=== PATIENT | female | born 1975 | race Caucasian/White ===

== ENCOUNTER 2016-07-17 15:15 | Emergency (ER) | payer BC, MEDICAID ==
--- NOTE | 2016-07-17 15:43 | Emergency Department Record ---
History of Present Illness - General Chief Complaint: Hypertension Stated Complaint: ELEVATED BP/FACIAL NUMBNESS Time Seen by Provider: 07/17/16 15:43 Source: Patient Mode of Arrival: Ambulatory Limitations: No limitations - History of Present Illness Initial Comments: pt came in c/o of stuttering numbness of l face, arm and leg through the night. right now she states the symptoms have faded in her arm and leg but are still present in her face. she was just discharged from [facility] for an acute stroke in the r mca /posterior limb of ic seen only on mri. Complaint: Other Onset/Timin -: Days(s) Timing: Now resolved Description: Lightheadedness, Near-syncope, Off-balance History of Same: Yes History of Trauma: No Severity: Mild Improves With: Nothing Worsens With: Nothing - [place] Coma Scale Eye Response: (4) Open spontaneously Motor Response: (6) Obeys commands Verbal Response: (5) Oriented Adri Total: 15 - Symptoms of Stroke Symptoms of stroke: Numbness, Weakness of Face Muscles - Related Data Home Medications Medication Instructions Recorded Confirmed Last Taken Aspirin [Ecotrin] 325 mg PO DAILY 07/17/16 07/17/16 1 Day Ago Venlafaxine HCl [Effexor Xr] 37.5 mg PO DAILY 07/17/16 07/17/16 1 Day Ago Allergies Allergy/AdvReac Type Severity Reaction Status Date / Time No Known Drug Allergies Allergy Verified 07/17/16 15:28 Travel Screening - Travel/Exposure Within Last 30 Days Have you traveled within the last 30 days?: No - Travel/Exposure Within Last Year Have you traveled outside the [place] in the last year?: No - Additonal Travel Details Have you been exposed to anyone with a communicable illness?: No - Travel Symptoms Symptom Screening: None Review of Systems Reviewed: No additional complaints except as noted below Constitutional: Reports: As per HPI. Denies: Chills, Fever, Malaise, Night sweats, Weakness, Weight change Eyes: Reports: As per HPI. Denies: Eye discharge, Eye pain, Photophobia, Vision change ENT: Reports: As per HPI. Denies: Congestion, Dental pain, Ear pain, Epistaxis , Hearing loss, Throat pain Respiratory: Reports: As per HPI. Denies: Cough, Dyspnea, Hemoptysis, Stridor, Wheezes Cardiovascular: Reports: As per HPI. Denies: Arrhythmia, Chest pain, Dyspnea on exertion, Edema, Murmurs, Orthopnea, Palpitations, Paroxysmal nocturnal dyspnea, Rheumatic Fever, Syncope Endocrine: Reports: As per HPI. Denies: Fatigue, Heat or cold intolerance, Polydipsia, Polyuria Gastrointestinal: Reports: As per HPI. Denies: Abdominal pain, Constipation, Diarrhea, Hematemesis, Hematochezia, Melena, Nausea, Vomiting Genitourinary: Reports: As per HPI. Denies: Abnormal menses, Discharge, Dyspareunia, Dysuria, Frequency, Hematuria, Incontinence, Retention, Urgency Musculoskeletal: Reports: As per HPI. Denies: Arthralgia, Back pain, Gout, Joint swelling, Myalgia, Neck pain Skin: Reports: As per HPI. Denies: Bruising, Change in color, Change in hair/ nails, Lesions, Pruritus, Rash Neurological: Reports: As per HPI. Denies: Abnormal gait, Confusion, Headache, Numbness, Paresthesias, Seizure, Tingling, Tremors, Vertigo, Weakness Psychiatric: Reports: As per HPI. Denies: Anxiety, Auditory hallucinations, Depression, Homicidal thoughts, Suicidal thoughts, Visual hallucinations Hematological/Lymphatic: Reports: As per HPI. Denies: Anemia, Blood Clots, Easy bleeding, Easy bruising, Swollen glands Past Medical History - SOCIAL HISTORY Smoking Status: Light tobacco smoker (<10/day) Alcohol Use: Occassional Drug Use: None - RESPIRATORY Hx Respiratory Disorders: No - CARDIOVASCULAR Hx Cardio Disorders: Yes Hx Hypertension: Yes - NEURO Hx CVA: Yes (07/12/2016) - GI Hx GI Disorders: No - Hx Genitourinary Disorders: Yes Hx Kidney Stones: Yes - ENDOCRINE Hx Thyroid Disease: Yes (new mass) - MUSCULOSKELETAL Hx Musculoskeletal Disorders: Yes - PSYCH Hx Psych Problems: Yes Hx Anxiety: Yes Hx Depression: Yes - HEMATOLOGY/ONCOLOGY Hx Hematology/Oncology Disorders: No Family Medical History Any Significant Family History?: Yes Hx Cancer: Brother/Sister Hx Heart Disease: Mother Physical Exam - General General Appearance: Alert, Oriented x3, Cooperative, Mild distress - Head Head exam: Normal inspection - Eye Eye exam: Normal appearance, PERRL, EOMI Pupils: Normal accommodation - ENT ENT exam: Normal exam, Mucous membranes moist, Normal external ear exam, Normal orophraynx Ear exam: Normal external inspection. negative: External canal tenderness Nasal Exam: Normal inspection. negative: Discharge, Sinus tenderness Mouth exam: Normal external inspection, Tongue normal Teeth exam: Normal inspection. negative: Dental caries Throat exam: Normal inspection. negative: Tonsillar erythema, Tonsillar exudate - Neck Neck exam: Normal inspection, Full ROM. negative: Tenderness - Respiratory Respiratory exam: Normal lung sounds bilaterally. negative: Respiratory distress - Cardiovascular Cardiovascular Exam: Normal rhythm, Normal heart sounds, Tachycardia - GI/Abdominal GI/Abdominal exam: Soft, Normal bowel sounds. negative: Tenderness - Rectal Rectal exam: Deferred - exam: Deferred - Extremities Extremities exam: Normal inspection, Full ROM, Normal capillary refill. negative: Tenderness - Back Back exam: Reports: Normal inspection, Full ROM. Denies: Muscle spasm, Rash noted, Tenderness - Neurological Neurological exam: Alert, CN II-XII intact, Normal gait, Oriented X3, Other ( decreased sensation) - Psychiatric Psychiatric exam: Normal affect, Normal mood - Skin Skin exam: Dry, Intact, Normal color, Warm Stroke Assessment - NIH Stroke Scale 1a. Level of Consciousness: (0) Alert 1b. LOC Questions: (0) Answers Correctly 1c. LOC Commands: (0) Performs Tasks Correctly 2. Best Gaze: (0) Normal 3. Visual: (0) No Visual Loss 4. Facial Palsy: (1) Minor Paralysis 5a. Motor Arm Left: (0) No Drift 5b. Motor Arm Right: (0) No Drift 6a. Motor Leg Left: (0) No Drift 6b. Motor Leg Right: (0) No Drift 7. Limb Ataxia: (0) Absent 8. Sensory: (1) Mild/Moderate Sensory Loss 9. Best Language: (0) No Aphasia 10. Dysarthria: (0) Normal 11. Extinction/Inattention: (0) No Abnormality NIH Stoke Scale Total: 2 Course Vital Signs 07/17/16 15:18 Temperature 98.3 F Pulse Rate 108 H Respiratory 22 Rate Blood Pressure 147/119 Pulse Ox 96 - Reevaluation(s) Reevaluation #1: 07/17/16 18:41 initially pt had slight numbness in l side of face Reevaluation #2: 07/17/16 18:42 on recheck pt had numbness and slight drooping of l side of face just like she had with stroke. symptoms in extremities remained resolved. Medical Decision Making - Management Options MDM Management: Additional Work-up Planned (e.g. ADM/Transfer/OP Study) - Data Complexity MDM Data: Labs Ordered and/or Reviewed, X-Ray Ordered and/or Reviewed, EKG Ordered and/or Reviewed - Lab Data Result diagrams: 07/17/16 15:48 07/17/16 15:48 - EKG Data EKG: Abnormal EKG (deep inverted t waves that are deeper then previous ekg) Disposition Disposition: Transfer Clinical Impression: Elevated liver enzymes Stroke Qualifiers: CVA mechanism: unspecified Qualified Code(s): I63.9 - Cerebral infarction, unspecified Disposition: Acute Care Hospital Transfer Transfer To: [facility] Reason For Transfer: stroke Accepting Physician: dr [email or web address] Time Discussed w/Accepting Physician: 18:15 Forms: Patient Portal Access
[2016-07-17 15:56] LABS: HEMATOCRIT 42.8 % (35.0-47.0); HEMOGLOBIN 14.4 gm/dl (11.6-16.0); MEAN CELL VOLUME 93.4 fl (81-97); MEAN CORPUSCULAR HEMOGLOBIN 31.4 pg (27-33); MEAN CORPUSCULAR HGB CONC 33.6 g/dl (32-36); MEAN PLATELET VOLUME 11.1 fl (7.4-10.4); PLATELET COUNT 291 K/uL (130-400); RED BLOOD COUNT 4.58 M/uL (3.80-5.40); RED CELL DISTRIBUTION WIDTH 14.1 % (11.5-14.5); WHITE BLOOD COUNT W/O DIFF 12.5 K/uL (4.2-12.2)
[2016-07-17 16:07] LABS: PLATELET ESTIMATE NORMAL (NORMAL)
[2016-07-17 16:08] LABS: ANION GAP 16.6 (7-16); BLOOD UREA NITROGEN 9 mg/dL (7-17); CARBON DIOXIDE 21.4 mmol/L (22-30); CREATINE PHOSPHOKINASE 37 U/L (30-135); CREATININE 0.6 mg/dL (0.52-1.04); EST GLOMERULAR FILTRATION RATE > 60 ml/min; GLUCOSE,RANDOM 91 mg/dL (70-110)
[2016-07-17 16:10] LABS: INR 0.94; PARTIAL THROMBOPLASTIN TIME 25.4 SECONDS (24.5-39.1); PROTHROMBIN TIME (PATIENT) 10.6 SECONDS (9.5-12.1)
[2016-07-17 16:20] LABS: CKMB < 0.2 ug/L (0-6); TROPONIN I < 0.012 ng/mL (0.00-0.034)
[2016-07-17 17:23] LABS: ALBUMIN 4.7 gm/dL (3.5-5.0); BILIRUBIN,TOTAL 0.76 mg/dL (0.2-1.3); TOTAL PROTEIN 7.8 gm/dL (6.3-8.2)
[2016-07-17 17:29] LABS: URINE APPEARANCE CLEAR; URINE BILIRUBIN NEGATIVE (NEGATIVE); URINE BLOOD TRACE-I (NEGATIVE); URINE COLOR YELLOW; URINE GLUCOSE (UA) NEGATIVE (NEGATIVE); URINE KETONE NEGATIVE (NEGATIVE); URINE LEUKOCYTE ESTERASE NEGATIVE (NEGATIVE); URINE NITRITE NEGATIVE (NEGATIVE); URINE PROTEIN NEGATIVE (NEGATIVE)
[2016-07-17 17:37] LABS: URINE BACTERIA NONE SEEN; URINE EPITHELIAL CELLS 0 - 2 (FEW); URINE WBC NONE SEEN (0-2/hpf)
--- NOTE | 2016-07-21 13:12 | CT SCAN REPORT ---
EXAM: HEAD CT WITHOUT CONTRAST HISTORY: INTERMITTENT LEFT FACIAL NUMBNESS. HISTORY OF STROKE ON 07/12/16. TECHNIQUE: Contiguous axial images from the cerebral convexities to the foramen magnum were obtained without contrast. Comparison: None. Hand dominance: Unknown. FINDINGS: The brain volume is normal. No acute intracranial hemorrhage, mass effect, or midline shift. No CT evidence of acute infarct. The ventricles, basal cisterns, and sulci are within normal limits. The osseous structures, soft tissues and paranasal sinuses are unremarkable. IMPRESSION: NORMAL HEAD CT. JOB NUMBER: [id number] MTDD
== END 2016-07-17 20:09 | disposition short-term general hospital (02) ==
LOC: ER 15:15
DX: I63.9 Cerebral infarction, unspecified (principal); R29.810 Facial weakness; R29.702 NIHSS score 2; R55 Syncope and collapse; R74.8 Abnormal levels of other serum enzymes; I10 Essential (primary) hypertension; Z87.891 Personal history of nicotine dependence; Z86.73 Personal history of transient ischemic attack (TIA), and cerebral infarction without residual deficits
CPT/HCPCS: 70450; 80048; 80076; 81001; 82550; 82553; 84484; 85027; 85610; 85730; 93005; 93010; 99285

== ENCOUNTER 2016-07-26 15:30 | Emergency (ER) | payer BC, MEDICAID ==
--- NOTE | 2016-07-26 16:27 | Emergency Department Record ---
History of Present Illness - General Chief complaint: ENT Stated complaint: POST OP ISSUES Time Seen by Provider: 07/26/16 16:26 Source: Patient Mode of Arrival: Ambulatory Limitations: No limitations - History of Present Illness Initial comments: The patient is here due to throat pain at her biopsy site. The patient had a thyroid biopsy 2 weeks ago and has done well until she started to develop pain at the site a few days ago. She was unable to contact the ENT doctor so she decided to come to the ER. There has been no fever, chills, vomiting, voice changes or odynophagia. MD complaint: Sore throat Onset/Timin -: Days(s) Location: Throat Severity: Moderate Severity scale (1-10): 7 Quality: Other Consistency: Constant Improves with: None Worsens with: Movement, Position, Swallowing Context-Epistaxis: Recent surgery/procedure Associated Symptoms: Other - Related Data Home Medications Medication Instructions Recorded Confirmed Last Taken Aspirin [Ecotrin] 325 mg PO DAILY 07/17/16 07/26/16 1 Day Ago Venlafaxine HCl [Effexor Xr] 37.5 mg PO DAILY 07/17/16 07/26/16 1 Day Ago Hydrocodone/Acetaminophen 7.5 mg PO ASDIR 07/26/16 07/26/16 Unknown [Hydrocodone/Acetaminophen 7.5mg/325mg] Previous Rx's Medication Instructions Recorded Cephalexin [Keflex] 500 mg PO QID #28 cap 07/26/16 Allergies Allergy/AdvReac Type Severity Reaction Status Date / Time No Known Drug Allergies Allergy Unverified 07/24/16 15:52 Travel Screening - Travel/Exposure Within Last 30 Days Have you traveled within the last 30 days?: No Review of Systems Constitutional: Denies: Chills Eyes: Denies: Eye discharge ENT: Denies: Congestion Respiratory: Denies: Cough, Dyspnea Past Medical History - SOCIAL HISTORY Smoking Status: Former smoker Alcohol Use: None Drug Use: None - RESPIRATORY Hx Respiratory Disorders: No - CARDIOVASCULAR Hx Cardio Disorders: Yes Hx Hypertension: Yes - NEURO Hx Neuro Disorders: Yes Hx CVA: Yes (07/12/2016) - GI Hx GI Disorders: No - Hx Genitourinary Disorders: Yes Hx Kidney Stones: Yes - ENDOCRINE Hx Endocrine Disorders: Yes Hx Thyroid Disease: Yes (new mass) - MUSCULOSKELETAL Hx Musculoskeletal Disorders: Yes - PSYCH Hx Psych Problems: Yes Hx Anxiety: Yes Hx Depression: Yes - HEMATOLOGY/ONCOLOGY Hx Hematology/Oncology Disorders: No Family Medical History Any Significant Family History?: Yes Hx Cancer: Brother/Sister Hx Heart Disease: Mother Physical Exam - General General Appearance: Alert, Oriented x3, Cooperative, No acute distress - Head Head exam: Atraumatic, Normocephalic, Normal inspection - Eye Eye exam: Normal appearance, PERRL - ENT ENT exam: Normal exam, Mucous membranes moist, Normal external ear exam, Normal orophraynx, TM's normal bilaterally Throat exam: Normal inspection. negative: Tonsillar erythema, Tonsillar exudate - Neck Neck exam: Normal inspection (There are no signs of any infection or swelling.) , Full ROM, Tenderness (There is tenderness to the L side of the thyroid gland but no swelling, bruising, or erythema is noted.). negative: Lymphadenopathy, Meningismus Course Vital Signs 07/26/16 15:57 Temperature 98.7 F Pulse Rate 109 H Respiratory 20 Rate Blood Pressure 118/83 Pulse Ox 97 - Reevaluation(s) Reevaluation #1: The patient is doing very well. I did discuss the CT results which do demonstrate a 2.4x1.9 cm cystic lesion in the L side of the thyroid. There is slight rightward tracheal deviation but no other issues. There does not appear to be any hemorrhage or stranding. The lesion is smaller than prior to the biopsy since it measured 3 cm prior to the aspiration. The patient is to F/U with her PCP early next week for recheck. 07/26/16 18:30 Medical Decision Making - Data Complexity MDM Data: Labs Ordered and/or Reviewed, X-Ray Ordered and/or Reviewed - Lab Data Result diagrams: 07/26/16 17:26 07/26/16 17:26 - Radiology Data Radiology results: Report reviewed (ST neck: Slight tracheal deviation to R. CT: 2.4x1.9 cm cystic lesion L side of the thyroid.) Disposition Disposition: Discharge Clinical Impression: Post-op pain Disposition: Home, Self-Care Condition: (1) Good Instructions: Thyroid Nodules (ED) Additional Instructions: Please continue your regular pain medicines. Please continue the Keflex as directed. Please see your PCP early this next week for recheck. Proceed to the ER for any increased pain, swelling, or fever. Prescriptions: Cephalexin [Keflex] 500 mg PO QID #28 cap Forms: Patient Portal Access Time of Disposition: 18:37
[2016-07-26 17:46] LABS: BASO % 0.4 % (0-6); EOS % 1.1 % (0-6); GRAN % 79.7 % (47-80); HEMATOCRIT 41.2 % (35.0-47.0); HEMOGLOBIN 13.8 gm/dl (11.6-16.0); LYMPH % 12.4 % (16-45); MEAN CELL VOLUME 93.8 fl (81-97); MEAN CORPUSCULAR HEMOGLOBIN 31.4 pg (27-33); MEAN CORPUSCULAR HGB CONC 33.5 g/dl (32-36); MEAN PLATELET VOLUME 11.8 fl (7.4-10.4); MONO % 6.4 % (0-9); PLATELET COUNT 301 K/uL (130-400); RED BLOOD COUNT 4.39 M/uL (3.80-5.40); RED CELL DISTRIBUTION WIDTH 13.3 % (11.5-14.5); WHITE BLOOD COUNT W/O DIFF 12.3 K/uL (4.2-12.2)
[2016-07-26 17:57] LABS: ANION GAP 13.6 (7-16); BLOOD UREA NITROGEN 7 mg/dL (7-17); C-REACTIVE PROTEIN 1.8 mg/dL (0.0-0.9); CARBON DIOXIDE 23.4 mmol/L (22-30); CREATININE 0.6 mg/dL (0.52-1.04); EST GLOMERULAR FILTRATION RATE > 60 ml/min; GLUCOSE,RANDOM 110 mg/dL (70-110)
[2016-07-26] MEDS: CEPHALEXIN 500 MG CAPSULE PO STA ×2 (18:46)
--- NOTE | 2016-07-31 12:59 | RADIOLOGY REPORT ---
EXAM: SOFT TISSUE NECK HISTORY: NECK PAIN. TECHNIQUE: AP and lateral views of the soft tissue neck were performed. FINDINGS: There is mild deviation of the trachea rightward. The prevertebral soft tissues are normal. The airway is patent. IMPRESSION: MILD DEVIATION OF THE TRACHEA RIGHTWARD. THE REMAINDER OF THE SOFT TISSUES ARE UNREMARKABLE. JOB NUMBER: [id number] [facility]
--- NOTE | 2016-07-31 13:06 | CT SCAN REPORT ---
EXAM: CT OF THE SOFT TISSUES OF THE NECK HISTORY: LEFT SIDED NECK PAIN. TECHNIQUE: Sequential axial images were obtained through the soft tissues of the neck after intravenous administration of 100 ml of Omnipaque 300 contrast material. Sagittal and coronal reformatted images were performed. FINDINGS: There is a 2.4 cm x 1.9 cm cystic lesion in the left lobe of the thyroid gland. This produces deviation of the trachea leftward. The remainder of the thyroid gland appears normal. The submandibular and parotid glands appear normal. The nasopharynx and oropharynx appears normal. The trachea appears normal. The visualized superior mediastinum appears normal. There is no lymphadenopathy in the soft tissues of the neck. IMPRESSION: 2.4 X 1.9 CM CYSTIC LESION IN THE LEFT LOBE OF THE THYROID GLAND. THIS PRODUCES DEVIATION OF THE TRACHEA LEFTWARD. THE REMAINDER OF THE EXAMINATION IS UNREMARKABLE. JOB NUMBER: [id number] [facility]TDD
== END 2016-07-26 18:50 | disposition home or self-care (01) ==
LOC: ER 15:30
DX: G89.18 Other acute postprocedural pain (principal); R07.0 Pain in throat; E07.9 Disorder of thyroid, unspecified
CPT/HCPCS: 99283 ×2; 85025; 86140; 80048; 70360; 70491; Q9967

== ENCOUNTER 2017-10-17 10:04 | Emergency (ER) | payer MEDICAID ==
--- NOTE | 2017-10-17 10:58 | Emergency Department Record ---
History of Present Illness - General Chief complaint: Vomiting Stated complaint: VOMITING/DIARRHEA Time Seen by Provider: 10/17/17 10:51 Source: Patient, RN notes reviewed Mode of Arrival: Ambulatory - History of Present Illness Initial comments: 2 weeks of cough and congestion and diarrhea vomiting and she feels body aches. her two boys are sick with this but they got over it in 3 days. she has body aches. Patient's primary Zeynep Haley and her daughter is also sick with vomiting and diarrhea. MD complaint: Diarrhea, Vomiting Onset/Timin -: Week(s) - Related Data Previous Rx's Medication Instructions Recorded Potassium Chloride 20 meq PO TID #60 [email or web address] 10/17/17 Allergies Allergy/AdvReac Type Severity Reaction Status Date / Time No Known Drug Allergies Allergy Verified 10/17/17 10:27 Travel Screening - Travel/Exposure Within Last 30 Days Have you traveled within the last 30 days?: No - Travel/Exposure Within Last Year Have you traveled outside the [place] in the last year?: No - Additonal Travel Details Have you been exposed to anyone with a communicable illness?: No - Travel Symptoms Symptom Screening: None Past Medical History - SOCIAL HISTORY Smoking Status: Former smoker Alcohol Use: Occasional Drug Use: None - RESPIRATORY Hx Respiratory Disorders: No - CARDIOVASCULAR Hx Cardio Disorders: Yes Hx Hypertension: Yes - NEURO Hx Neuro Disorders: Yes Hx CVA: Yes (07/12/2016) - GI Hx GI Disorders: No - Hx Genitourinary Disorders: Yes Hx Kidney Stones: Yes - ENDOCRINE Hx Endocrine Disorders: Yes Hx Thyroid Disease: Yes (new mass) - MUSCULOSKELETAL Hx Musculoskeletal Disorders: Yes - PSYCH Hx Psych Problems: Yes Hx Anxiety: Yes Hx Depression: Yes - HEMATOLOGY/ONCOLOGY Hx Hematology/Oncology Disorders: No Family Medical History Any Significant Family History?: Yes Hx Cancer: Brother/Sister Hx Heart Disease: Mother Course Vital Signs 10/17/17 10:29 Temperature 98.8 F Pulse Rate 112 H Respiratory 18 Rate Blood Pressure 104/80 Pulse Ox 97 Medical Decision Making - Lab Data Result diagrams: 10/17/17 11:26 10/17/17 11:26 Disposition Clinical Impression: Viral syndrome, Hypokalemia Vomiting Qualifiers: Vomiting type: unspecified Vomiting Intractability: non-intractable Nausea presence: with nausea Qualified Code(s): R11.2 - Nausea with vomiting, unspecified Diarrhea Qualifiers: Diarrhea type: unspecified type Qualified Code(s): R19.7 - Diarrhea, unspecified Disposition: Home, Self-Care Condition: (1) Good Instructions: Acute Nausea and Vomiting (ED) Additional Instructions: follow up with family in 4 days to recheck potassium Prescriptions: Potassium Chloride 20 meq PO TID #60 [email or web address] Forms: Patient Portal Access Time of Disposition: 13:20 Quality - Quality Measures Quality Measures: N/A - Blood Pressure Screening Does Patient Have Any of the Following: No Blood Pressure Classification: Pre-Hypertensive BP Reading Systolic Measurement: 104 Diastolic Measurement: 80 Screening for High Blood Pressure: < Pre-Hypertensive BP, F/U Documented > [ [id number]] Pre-Hypertensive Follow-up Interventions: Referral to alternative/primary care provider.
[2017-10-17] MEDS ORDERED: ONDANSETRON HCL IV 4 MG/2 ML VIAL IV ONE (11:05)
[2017-10-17] MEDS ORDERED: 0.9 % SODIUM CHLORIDE 1,000 ML BAG IV ONE (11:05)
[2017-10-17 11:34] LABS: HEMATOCRIT 39.5 % (35.0-47.0); HEMOGLOBIN 13.8 gm/dl (11.6-16.0); MEAN CELL VOLUME 96.8 fl (81-97); MEAN CORPUSCULAR HEMOGLOBIN 33.8 pg (27-33); MEAN CORPUSCULAR HGB CONC 34.9 g/dl (32-36); MEAN PLATELET VOLUME 11.4 fl (7.4-10.4); PLATELET COUNT 280 K/uL (130-400); RED BLOOD COUNT 4.08 M/uL (3.80-5.40); RED CELL DISTRIBUTION WIDTH 15.2 % (11.5-14.5); WHITE BLOOD COUNT W/O DIFF 15.7 K/uL (4.2-12.2)
[2017-10-17 11:46] LABS: CREATININE 0.6 mg/dL (0.5-0.9); EST GLOMERULAR FILTRATION RATE > 60 mL/min
[2017-10-17 11:48] LABS: INFLUENZA A NEGATIVE (NEGATIVE); INFLUENZA B NEGATIVE (NEGATIVE)
[2017-10-17 11:49] LABS: GLUCOSE,RANDOM 174 mg/dL (74-109)
[2017-10-17 12:17] LABS: BLOOD UREA NITROGEN 1 mg/dL (6-20)
[2017-10-17] MEDS ORDERED: SOD CHLOR 0.9% WITH KCL 40MEQ 40 MEQ/1,000 ML IV.SOLN IV ONE (12:17)
[2017-10-17] MEDS ORDERED: POTASSIUM CHLORIDE 20 MEQ TABLET PO ONE ×2 (12:18→13:14)
== END 2017-10-17 14:01 | disposition home or self-care (01) ==
LOC: ER 10:04
DX: R11.2 Nausea with vomiting, unspecified (principal); R19.7 Diarrhea, unspecified; E87.6 Hypokalemia; I10 Essential (primary) hypertension; F17.210 Nicotine dependence, cigarettes, uncomplicated
CPT/HCPCS: 99284 ×2; 96374; 96375; 80048; 87400; 85027; J2405; 99282; J7030

== ENCOUNTER 2018-04-27 17:16 | Emergency (ER) | payer MEDICAID ==
[2018-04-27 17:59] LABS: BASO % 0.6 % (0-6); EOS % 1.1 % (0-6); GRAN % 76.8 % (47-80); HEMATOCRIT 21.6 % (35.0-47.0); MEAN CORPUSCULAR HEMOGLOBIN 37.6 pg (27-33); MEAN CORPUSCULAR HGB CONC 32.4 g/dl (32-36); MEAN PLATELET VOLUME 9.6 fl (7.4-10.4); MONO % 8.5 % (0-9); PLATELET COUNT 203 K/uL (130-400); RED BLOOD COUNT 1.86 M/uL (3.80-5.40); RED CELL DISTRIBUTION WIDTH 14.2 % (11.5-14.5); WHITE BLOOD COUNT W/O DIFF 12.6 K/uL (4.2-12.2)
[2018-04-27 18:09] LABS: MEAN CELL VOLUME 116.1 fl (81-97)
[2018-04-27 18:12] LABS: BLOOD UREA NITROGEN 3 mg/dL (6-20); CREATININE 0.5 mg/dL (0.5-0.9); EST GLOMERULAR FILTRATION RATE > 60 mL/min; INR 1.5; PARTIAL THROMBOPLASTIN TIME 33.3 SECONDS (24.5-39.1); PROTHROMBIN TIME (PATIENT) 14.5 SECONDS (9.5-12.1)
[2018-04-27 18:13] LABS: TOTAL PROTEIN 6.6 g/dL (6.6-8.7)
[2018-04-27 18:15] LABS: GLUCOSE,RANDOM 104 mg/dL (74-109)
[2018-04-27 18:17] LABS: ALT/SGPT 14 U/L (<33); AST/SGOT 52 U/L (10.0-35.0)
[2018-04-27 18:18] LABS: ALB/GLOB RATIO 0.8 (1.1-1.8); ALBUMIN 2.9 g/dL (4.0-5.0); ALKALINE PHOSPHATASE 154 U/L (35-104)
[2018-04-27 18:29] LABS: T3 UPTAKE 36 % (25-35); THYROXINE (T4) 9.28 ug/dL (4.5-11.7)
[2018-04-27 19:13] LABS: URINE APPEARANCE SL CLOUDY; URINE BILIRUBIN MODERATE (NEGATIVE); URINE BLOOD MODERATE (NEGATIVE); URINE COLOR ORANGE; URINE GLUCOSE (UA) NEGATIVE (NEGATIVE); URINE KETONE NEGATIVE (NEGATIVE); URINE LEUKOCYTE ESTERASE TRACE (NEGATIVE); URINE PROTEIN TRACE (NEGATIVE)
[2018-04-27 19:23] LABS: URINE NITRITE POSITIVE (NEGATIVE)
[2018-04-27 19:24] LABS: URINE BACTERIA 2+
--- NOTE | 2018-04-27 19:28 | Emergency Department Record ---
History of Present Illness - General Chief Complaint: Palpitations Stated Complaint: HEART RACING,DIZZINESS Time Seen by Provider: 04/27/18 17:26 Source: Patient Mode of Arrival: Wheelchair Limitations: No limitations - History of Present Illness Initial Comments: pt came in because she is swelling, having difficulty walking, feeling weak. she was admitted to [facility] in november for a month and had an extensive workup including a liver biopsy. she is having increased swelling of her legs, dizziness and weakness. Complaint: Palpitations Onset/Timin -: Week(s) Context: Other Associated Symptoms: Denies other symptoms - Related Data Previous Rx's Medication Instructions Recorded Potassium Chloride 20 meq PO TID #60 tab.[email or web address].[id number] 10/17/17 Allergies Allergy/AdvReac Type Severity Reaction Status Date / Time No Known Drug Allergies Allergy Unverified 04/06/18 10:06 Travel Screening - Travel/Exposure Within Last 30 Days Have you traveled within the last 30 days?: No Review of Systems Reviewed: No additional complaints except as noted below Constitutional: Reports: As per HPI. Denies: Chills, Fever, Malaise, Night sweats, Weakness, Weight change Eyes: Reports: As per HPI. Denies: Eye discharge, Eye pain, Photophobia, Vision change ENT: Reports: As per HPI. Denies: Congestion, Dental pain, Ear pain, Epistaxis , Hearing loss, Throat pain Respiratory: Reports: As per HPI. Denies: Cough, Dyspnea, Hemoptysis, Stridor, Wheezes Cardiovascular: Reports: As per HPI. Denies: Arrhythmia, Chest pain, Dyspnea on exertion, Edema, Murmurs, Orthopnea, Palpitations, Paroxysmal nocturnal dyspnea, Rheumatic Fever, Syncope Endocrine: Reports: As per HPI. Denies: Fatigue, Heat or cold intolerance, Polydipsia, Polyuria Gastrointestinal: Reports: As per HPI. Denies: Abdominal pain, Constipation, Diarrhea, Hematemesis, Hematochezia, Melena, Nausea, Vomiting Genitourinary: Reports: As per HPI. Denies: Abnormal menses, Discharge, Dyspareunia, Dysuria, Frequency, Hematuria, Incontinence, Retention, Urgency Musculoskeletal: Reports: As per HPI. Denies: Arthralgia, Back pain, Gout, Joint swelling, Myalgia, Neck pain Skin: Reports: As per HPI. Denies: Bruising, Change in color, Change in hair/ nails, Lesions, Pruritus, Rash Neurological: Reports: As per HPI. Denies: Abnormal gait, Confusion, Headache, Numbness, Paresthesias, Seizure, Tingling, Tremors, Vertigo, Weakness Psychiatric: Reports: As per HPI. Denies: Anxiety, Auditory hallucinations, Depression, Homicidal thoughts, Suicidal thoughts, Visual hallucinations Hematological/Lymphatic: Reports: As per HPI. Denies: Anemia, Blood Clots, Easy bleeding, Easy bruising, Swollen glands Past Medical History - SOCIAL HISTORY Smoking Status: Former smoker Alcohol Use: None Drug Use: None - RESPIRATORY Hx Respiratory Disorders: No - CARDIOVASCULAR Hx Cardio Disorders: Yes Hx Hypertension: Yes - NEURO Hx Neuro Disorders: Yes Hx CVA: Yes (07/12/2016) - GI Hx GI Disorders: No - Hx Genitourinary Disorders: Yes Hx Kidney Stones: Yes - ENDOCRINE Hx Endocrine Disorders: Yes Hx Thyroid Disease: Yes (new mass) - MUSCULOSKELETAL Hx Musculoskeletal Disorders: Yes - PSYCH Hx Psych Problems: Yes Hx Anxiety: Yes Hx Depression: Yes - HEMATOLOGY/ONCOLOGY Hx Hematology/Oncology Disorders: No Family Medical History Any Significant Family History?: Yes Hx Cancer: Brother/Sister Hx Heart Disease: Mother Physical Exam - General General Appearance: Alert, Oriented x3, Cooperative, Moderate distress - Head Head exam: Normal inspection - Eye Eye exam: Normal appearance, PERRL, EOMI, Scleral icterus Pupils: Normal accommodation - ENT ENT exam: Normal exam, Mucous membranes dry, Normal external ear exam, Normal orophraynx Ear exam: Normal external inspection. negative: External canal tenderness Nasal Exam: Normal inspection. negative: Discharge, Sinus tenderness Mouth exam: Normal external inspection, Tongue normal Teeth exam: Normal inspection. negative: Dental caries Throat exam: Normal inspection. negative: Tonsillar erythema, Tonsillar exudate - Neck Neck exam: Normal inspection, Full ROM. negative: Tenderness - Respiratory Respiratory exam: Normal lung sounds bilaterally. negative: Respiratory distress - Cardiovascular Cardiovascular Exam: Normal rhythm, Normal heart sounds, Tachycardia - GI/Abdominal GI/Abdominal exam: Soft, Normal bowel sounds, Distended, Organomegaly, Tenderness - Rectal Rectal exam: Deferred - exam: Deferred - Extremities Extremities exam: Full ROM, Normal capillary refill, Pedal edema, Tenderness, Other (3plus edema) - Back Back exam: Reports: Normal inspection, Full ROM. Denies: Muscle spasm, Rash noted, Tenderness - Neurological Neurological exam: Abnormal gait, Alert, CN II-XII intact, Oriented X3 - Psychiatric Psychiatric exam: Normal affect, Normal mood - Skin Skin exam: Dry, Intact, Normal color, Warm, Other (juandice w telangtesias) Course Vital Signs 04/27/18 04/27/18 17:26 19:18 Temperature 98.0 F Pulse Rate 117 H Pulse Rate [ 114 H Pulse Ox Probe] Respiratory 20 20 Rate Blood Pressure 118/75 Blood Pressure 93/57 [Left Arm] Pulse Ox 100 97 - Reevaluation(s) Reevaluation #1: 04/27/18 19:48 d/w the [facility] who agreed pt needs to be there but currently has no beds. felix contacted Reevaluation #2: 04/27/18 20:15 spoke with felix. they suggested i call ivan johnson Medical Decision Making - Lab Data Result diagrams: 04/27/18 17:30 04/27/18 17:30 Lab Results 04/27/18 04/27/18 04/27/18 Range/Units 17:30 17:30 17:30 WBC 12.6 H (4.2-12.2) K/uL RBC 1.86 L (3.80-5.40) M/uL Hgb 7.0 L (11.6-16.0) gm/dl Hct 21.6 L (35.0-47.0) % MCV 116.1 H (81-97) fl MCH 37.6 H (27-33) pg MCHC 32.4 (32-36) g/dl RDW 14.2 (11.5-14.5) % Plt Count 203 (130-400) K/uL MPV 9.6 (7.4-10.4) fl Gran % 76.8 (47-80) % Lymphocytes % 13.0 L (16-45) % Monocytes % 8.5 (0-9) % Eosinophils % 1.1 (0-6) % Basophils % 0.6 (0-6) % PT 14.5 H (9.5-12.1) SECONDS INR 1.5 APTT 33.3 (24.5-39.1) SECONDS Sodium 139 (136-145) mmol/L Potassium 2.9 L* (3.4-4.5) mmol/L Chloride 103 (98-107) mmol/L Carbon Dioxide 22.0 (22-29) mmol/L Anion Gap 14.0 (7-16) BUN 3 L (6-20) mg/dL Creatinine 0.5 (0.5-0.9) mg/dL Estimated GFR > 60 mL/min Random Glucose 104 (74-109) mg/dL Calcium 8.3 L (8.6-10.0) mg/dL Total Bilirubin 6.20 H (0.2-1.0) mg/dL AST 52 H (10.0-35.0) U/L ALT 14 (<33) U/L Alkaline Phosphatase 154 H (35-104) U/L NT-Pro-B Natriuret Pep 689.00 H (<125) pg/mL Total Protein 6.6 (6.6-8.7) g/dL Albumin 2.9 L (4.0-5.0) g/dL Globulin 3.7 (1.4-4.8) gm/dL Albumin/Globulin Ratio 0.8 L (1.1-1.8) TSH 2.30 (0.270-4.20) uIU/mL Thyroxine (T4) 9.28 (4.5-11.7) ug/dL T3 Uptake 36 H (25-35) % 04/27/18 Range/Units 17:48 WBC (4.2-12.2) K/uL RBC (3.80-5.40) M/uL Hgb (11.6-16.0) gm/dl Hct (35.0-47.0) % MCV (81-97) fl MCH (27-33) pg MCHC (32-36) g/dl RDW (11.5-14.5) % Plt Count (130-400) K/uL MPV (7.4-10.4) fl Gran % (47-80) % Lymphocytes % (16-45) % Monocytes % (0-9) % Eosinophils % (0-6) % Basophils % (0-6) % PT (9.5-12.1) SECONDS INR APTT (24.5-39.1) SECONDS Sodium (136-145) mmol/L Potassium (3.4-4.5) mmol/L Chloride (98-107) mmol/L Carbon Dioxide (22-29) mmol/L Anion Gap (7-16) BUN (6-20) mg/dL Creatinine (0.5-0.9) mg/dL Estimated GFR mL/min Random Glucose (74-109) mg/dL Calcium (8.6-10.0) mg/dL Total Bilirubin (0.2-1.0) mg/dL AST (10.0-35.0) U/L ALT (<33) U/L Alkaline Phosphatase (35-104) U/L NT-Pro-B Natriuret Pep (<125) pg/mL Total Protein (6.6-8.7) g/dL Albumin (4.0-5.0) g/dL Globulin (1.4-4.8) gm/dL Albumin/Globulin Ratio (1.1-1.8) TSH (0.270-4.20) uIU/mL Thyroxine (T4) Cancelled (4.5-11.7) ug/dL T3 Uptake Cancelled (25-35) % Disposition Disposition: Transfer Clinical Impression: Hypokalemia Liver failure, acute Qualifiers: Hepatic coma status: without hepatic coma Qualified Code(s): K72.00 - Acute and subacute hepatic failure without coma Anemia Qualifiers: Anemia type: unspecified type Qualified Code(s): D64.9 - Anemia, unspecified Transfer To: [facility] Reason For Transfer: needs liver specialist Accepting Physician: dr toro Time Discussed w/Accepting Physician: 20:23 Quality - Quality Measures Quality Measures: N/A - Blood Pressure Screening Does Patient Have Any of the Following: No Blood Pressure Classification: Normal BP Reading Systolic Measurement: 118 Diastolic Measurement: 75 Screening for High Blood Pressure: < Normal BP, F/U Not Required > [G8783]
[2018-04-27 20:34] LABS: LACTIC ACID 1.7 mmol/L (0.5-2.2)
[2018-04-27 20:41] LABS: URINE APPEARANCE SL CLOUDY; URINE BILIRUBIN SMALL (NEGATIVE); URINE BLOOD MODERATE (NEGATIVE); URINE COLOR ORANGE; URINE GLUCOSE (UA) NEGATIVE (NEGATIVE); URINE KETONE NEGATIVE (NEGATIVE); URINE LEUKOCYTE ESTERASE TRACE (NEGATIVE); URINE NITRITE NEGATIVE (NEGATIVE); URINE PROTEIN TRACE (NEGATIVE)
[2018-04-27 20:45] LABS: URINE BACTERIA FEW; URINE EPITHELIAL CELLS 0 - 2 (FEW); URINE WBC 0 - 2 (0-2/hpf)
[2018-04-27] MEDS ORDERED: KETOROLAC 30 MG/ML VIAL IVP ONE (22:05)
== END 2018-04-27 23:56 | disposition short-term general hospital (02) ==
LOC: ER 17:16
DX: K72.00 Acute and subacute hepatic failure without coma (principal); D64.9 Anemia, unspecified; E87.6 Hypokalemia; R42 Dizziness and giddiness; R26.2 Difficulty in walking, not elsewhere classified; R53.1 Weakness; I10 Essential (primary) hypertension; Z87.891 Personal history of nicotine dependence
CPT/HCPCS: 99284 ×2; 96374; 83605; 82140; 85025; 85730; 85610; 80053; 81001; 84443; 84479; 84436; 83880; 93005; 93010; J1885

== ENCOUNTER 2018-05-12 20:35 | Emergency (ER) | payer MEDICAID ==
[2018-05-12] MEDS ORDERED: KETOROLAC 30 MG/ML VIAL IVP ONE (20:51)
[2018-05-12] MEDS ORDERED: MORPHINE SULFATE 10 MG/ML VIAL IVP ONE (20:51)
[2018-05-12] MEDS ORDERED: ONDANSETRON HCL IV 4 MG/2 ML VIAL IVP ONE (20:51)
--- NOTE | 2018-05-12 21:00 | Emergency Department Record ---
History of Present Illness - General Chief complaint: Flank Pain Stated complaint: RT FLANK PAIN, HURTS WHEN PAIN INHALING Time Seen by Provider: 05/12/18 20:50 Source: Patient Mode of Arrival: Ambulatory Limitations: No limitations - History of Present Illness Initial comments: 42 yo female presents to ED for evaluation of right sided flank pain symptoms that began yesterday. 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 Patient denies fevers, chills, nausea, vomiting, or abdominal pain symptoms. Patient denies hematuria symptoms or previous kidney stones. MD Complaint: Other Onset/Timin -: Days(s) Radiation: R flank Severity scale (1-10): 9 Quality: Stabbing Consistency: Constant, Getting worse Improves with: None Patient : No Associated Symptoms: Denies other symptoms - Related Data Allergies Allergy/AdvReac Type Severity Reaction Status Date / Time No Known Drug Allergies Allergy Verified 05/12/18 20:43 Travel Screening - Travel/Exposure Within Last 30 Days Have you traveled within the last 30 days?: No - Travel Symptoms Symptom Screening: None Review of Systems Constitutional: Denies: Chills, Fever, Malaise, Night sweats Eyes: Denies: Eye discharge, Eye pain ENT: Denies: Congestion, Ear pain, Epistaxis Respiratory: Denies: Cough, Dyspnea Cardiovascular: Denies: Chest pain, Dyspnea on exertion Endocrine: Denies: Fatigue, Heat or cold intolerance Gastrointestinal: Denies: Abdominal pain, Nausea, Vomiting Genitourinary: Denies: Incontinence, Retention Musculoskeletal: Reports: Back pain. Denies: Arthralgia, Gout, Joint swelling Skin: Denies: Bruising, Change in color Neurological: Denies: Abnormal gait, Confusion, Headache, Seizure Psychiatric: Denies: Anxiety Hematological/Lymphatic: Denies: Anemia, Blood Clots Past Medical History - SOCIAL HISTORY Smoking Status: Former smoker - RESPIRATORY Hx Respiratory Disorders: No - CARDIOVASCULAR Hx Cardio Disorders: Yes Hx Hypertension: Yes - NEURO Hx Neuro Disorders: Yes Hx CVA: Yes (07/12/2016) - GI Hx GI Disorders: Yes Hx Liver Disease: Yes - Hx Genitourinary Disorders: Yes Hx Kidney Stones: Yes - ENDOCRINE Hx Endocrine Disorders: Yes Hx Thyroid Disease: Yes (new mass) - MUSCULOSKELETAL Hx Musculoskeletal Disorders: Yes - PSYCH Hx Psych Problems: Yes Hx Anxiety: Yes Hx Depression: Yes - HEMATOLOGY/ONCOLOGY Hx Hematology/Oncology Disorders: No Family Medical History Any Significant Family History?: Yes Hx Cancer: Brother/Sister Hx Heart Disease: Mother Physical Exam - General General Appearance: Alert, Oriented x3, Cooperative Limitations: No limitations - Head Head exam: Atraumatic, Normocephalic, Normal inspection Head exam detail: negative: Abrasion, Contusion, Harper's sign, General tenderness, Hematoma - Eye Eye exam: Scleral icterus. negative: Conjunctival injection, Periorbital swelling, Periorbital tenderness - ENT Ear exam: negative: Auricular hematoma, Auricular trauma Nasal Exam: negative: Active bleeding, Discharge, Dried blood, Foreign body Mouth exam: negative: Drooling, Laceration, Muffled voice, Tongue elevation - Neck Neck exam: Normal inspection. negative: Meningismus, Tenderness - Respiratory Respiratory exam: Normal lung sounds bilaterally. negative: Rales, Respiratory distress, Rhonchi, Stridor - Cardiovascular Cardiovascular Exam: Regular rate, Normal rhythm, Normal heart sounds - GI/Abdominal GI/Abdominal exam: Soft, Organomegaly, Tenderness. negative: Rebound, Rigid - Rectal Rectal exam: Deferred - exam: Deferred - Extremities Extremities exam: Normal inspection. negative: Pedal edema, Tenderness - Back Back exam: Reports: CVA tenderness (R). Denies: CVA tenderness (L) - Neurological Neurological exam: Alert, Normal gait, Oriented X3 - Psychiatric Psychiatric exam: Normal affect, Normal mood - Skin Skin exam: Normal color. negative: Abrasion Type of lesion: negative: abrasion Course Vital Signs 05/12/18 20:44 Temperature 98.0 F Pulse Rate 116 H Respiratory 18 Rate Blood Pressure 111/73 Pulse Ox 100 - Reevaluation(s) Reevaluation #1: 05/12/18 21:17 Initial laboratory studies were reviewed: Hgb 7.9 (previous 7.0) HCT: 25.2 INR 1.3 Biliruben 4.4 (improved from 6.2) 05/12/18 21:34 UA reviewed: 0-2 RBCs 6-10 WBCs Few Bacteria Reevaluation #2: 05/12/18 21:53 CT Abdomen and Pelvis: No evidence for obstructive uropathy Hepatosplenomegaly Intra-renal calculus right Appendix surgically absent Patient was updated on all results Patient reports that she is still taking [place] for her chronic pain symptoms Appears stable for discharge with instructions for outpatient follow-up in 1-3 days as directed. Medical Decision Making - Lab Data Result diagrams: 05/12/18 20:50 05/12/18 20:50 Disposition Disposition: Discharge Clinical Impression: Chronic anemia, Hepatosplenomegaly, Flank pain Liver failure Qualifiers: Liver failure chronicity: unspecified chronicity Hepatic coma status: without hepatic coma Qualified Code(s): K72.90 - Hepatic failure, unspecified without coma Disposition: Home, Self-Care Condition: (2) Stable Instructions: Flank Pain (ED) Additional Instructions: Return to ED if your symptoms worsen or if you have any concerns. Motrin 600 mg as directed. Follow-up with your family doctor in 1-3 days as directed. Forms: Patient Portal Access Time of Disposition: 21:55 Quality - Quality Measures Quality Measures: N/A - Blood Pressure Screening Does Patient Have Any of the Following: No Blood Pressure Classification: Normal BP Reading Systolic Measurement: 111 Diastolic Measurement: 73 Screening for High Blood Pressure: < Normal BP, F/U Not Required > [G8783]
[2018-05-12 21:03] LABS: HEMATOCRIT 25.2 % (35.0-47.0); HEMOGLOBIN 7.9 gm/dl (11.6-16.0); MEAN CORPUSCULAR HEMOGLOBIN 35.7 pg (27-33); MEAN CORPUSCULAR HGB CONC 31.3 g/dl (32-36); MEAN PLATELET VOLUME 9.5 fl (7.4-10.4); PLATELET COUNT 236 K/uL (130-400); RED BLOOD COUNT 2.21 M/uL (3.80-5.40); RED CELL DISTRIBUTION WIDTH 16.1 % (11.5-14.5); WHITE BLOOD COUNT W/O DIFF 12.6 K/uL (4.2-12.2)
[2018-05-12 21:13] LABS: INR 1.3; PROTHROMBIN TIME (PATIENT) 13.3 SECONDS (9.5-12.1)
[2018-05-12 21:15] LABS: BLOOD UREA NITROGEN 6 mg/dL (6-20); CREATININE 0.5 mg/dL (0.5-0.9); EST GLOMERULAR FILTRATION RATE > 60 mL/min
[2018-05-12 21:16] LABS: TOTAL PROTEIN 7.6 g/dL (6.6-8.7)
[2018-05-12 21:18] LABS: GLUCOSE,RANDOM 110 mg/dL (74-109)
[2018-05-12 21:21] LABS: ALB/GLOB RATIO 0.9 (1.1-1.8); ALBUMIN 3.5 g/dL (4.0-5.0); ALKALINE PHOSPHATASE 131 U/L (35-104); ALT/SGPT 21 U/L (<33); AST/SGOT 58 U/L (10.0-35.0)
[2018-05-12 21:23] LABS: URINE APPEARANCE CLEAR; URINE BILIRUBIN NEGATIVE (NEGATIVE); URINE BLOOD NEGATIVE (NEGATIVE); URINE COLOR YELLOW; URINE GLUCOSE (UA) NEGATIVE (NEGATIVE); URINE KETONE NEGATIVE (NEGATIVE); URINE LEUKOCYTE ESTERASE MODERATE (NEGATIVE); URINE NITRITE NEGATIVE (NEGATIVE); URINE PROTEIN NEGATIVE (NEGATIVE); URINE UROBILINOGEN 0.2 E.U./dL (0.20 - 1.00)
[2018-05-12 21:33] LABS: URINE BACTERIA FEW; URINE EPITHELIAL CELLS 0 - 2 (FEW); URINE RBC 0 - 2 (NONE SEEN)
--- NOTE | 2018-05-13 17:45 | CT SCAN REPORT ---
EXAM: CT SCAN ABDOMEN/PELVIS WO CONTRAST HISTORY: RIGHT FLANK PAIN. TECHNIQUE: Sequential axial images were obtained from the diaphragms through the ischiorectal fossa without intravenous or oral contrast administration. FINDINGS: There is hepatosplenomegaly. The spleen measures 20 cm in the craniocaudad dimension. Gallbladder is surgically removed. No gross abnormalities within the pancreas. The adrenal glands appear normal. There is nonobstructing calculi on the right kidney. There is a small amount of fluid around the liver. No evidence for bowel obstruction. The appendix is not definitively identified. There is a small amount of inflammation. No definitive evidence of appendicitis; evaluation is somewhat limited though. Urinary bladder appears grossly unremarkable. Mild degenerative change of the lumbar spine. IMPRESSION: NONOBSTRUCTING CALCULI IN THE RIGHT KIDNEY. NO OBSTRUCTIVE UROPATHY. HEPATOSPLENOMEGALY. THE SPLEEN MEASURES 20 CM IN THE CRANIOCAUDAD DIMENSION. THERE IS A SMALL AMOUNT OF INFLAMMATORY CHANGE IN THE RIGHT LOWER QUADRANT. THERE IS MILD INFLAMMATORY CHANGE. THE APPENDIX IS SURGICALLY ABSENT. JOB NUMBER: [id number] [facility]
== END 2018-05-12 22:16 | disposition home or self-care (01) ==
LOC: ER 20:35
DX: K72.90 Hepatic failure, unspecified without coma (principal); D53.9 Nutritional anemia, unspecified; R16.2 Hepatomegaly with splenomegaly, not elsewhere classified; R10.11 Right upper quadrant pain; I10 Essential (primary) hypertension; Z87.891 Personal history of nicotine dependence
CPT/HCPCS: 74176; 80053; 81001; 85027; 85610; 96374; 96375; 99284; J1885; J2270; J2405

== ENCOUNTER 2018-07-28 14:37 | Emergency (ER) | payer MEDICAID ==
[2018-07-28] MEDS ORDERED: FUROSEMIDE IV 40MG/4ML VIAL IVP ONE (14:51)
[2018-07-28 15:02] LABS: HEMATOCRIT 23.9 % (35.0-47.0); HEMOGLOBIN 7.1 gm/dl (11.6-16.0); MEAN CELL VOLUME 118.9 fl (81-97); MEAN CORPUSCULAR HEMOGLOBIN 35.3 pg (27-33); MEAN CORPUSCULAR HGB CONC 29.7 g/dl (32-36); MEAN PLATELET VOLUME 8.8 fl (7.4-10.4); PLATELET COUNT 215 K/uL (130-400); RED BLOOD COUNT 2.01 M/uL (3.80-5.40); WHITE BLOOD COUNT W/O DIFF 7.7 K/uL (4.2-12.2)
[2018-07-28 15:15] LABS: INR 1.3; PARTIAL THROMBOPLASTIN TIME 32.9 SECONDS (24.5-39.1); PROTHROMBIN TIME (PATIENT) 13.2 SECONDS (9.5-12.1)
[2018-07-28 15:16] LABS: BLOOD UREA NITROGEN 5 mg/dL (6-20)
[2018-07-28 15:17] LABS: CREATININE 0.6 mg/dL (0.5-0.9); EST GLOMERULAR FILTRATION RATE > 60 mL/min; LIPASE 36 U/L (13-60); TOTAL PROTEIN 7.4 g/dL (6.6-8.7)
[2018-07-28 15:19] LABS: GLUCOSE,RANDOM 109 mg/dL (74-109)
[2018-07-28] MEDS ORDERED: ALBUTEROL SULFATE (0.083%) 2.5 MG/3 ML NEB INH ONE (15:21)
[2018-07-28 15:22] LABS: ALBUMIN 3.8 g/dL (4.0-5.0); ALKALINE PHOSPHATASE 133 U/L (45-87); ALT/SGPT 17 U/L (<33); AST/SGOT 41 U/L (10.0-35.0)
--- NOTE | 2018-07-28 15:33 | Emergency Department Record ---
History of Present Illness - General Chief Complaint: Shortness of breath Stated Complaint: MIGEL,FORGETFUL Time Seen by Provider: 07/28/18 14:46 Source: Patient, RN notes reviewed Mode of Arrival: Wheelchair - History of Present Illness Initial Comments: sob and has liver failure and ascites and last paracentesis in mar 2018, Patient states she is seeing the liver Dr weekly at [facility] in [place] and she doesn't know her liver DR's name. 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 Her breathing got bad 2-3 days ago however it hasn't been good for one month Onset/Timin -: Month(s) Associated Symptoms: Cough Treatments Prior to Arrival: Bronchodilator - Related Data Home Oxygen Therapy: No Home Medications Medication Instructions Recorded Confirmed Last Taken Clobetasol Propionate 1 apply TP ASDIR 07/28/18 07/28/18 Unknown Erythromycin Base [Erythromycin 1 each OPTH QID 07/28/18 07/28/18 Unknown OPTH Ointment] Hydrocodone/Acetaminophen [[place] 1 each PO ASDIR 07/28/18 07/28/18 Unknown 7.5-325 Tablet] Moxifloxacin HCl [Moxifloxacin] 3 ml OP QID 07/28/18 07/28/18 Unknown Allergies Allergy/AdvReac Type Severity Reaction Status Date / Time No Known Drug Allergies Allergy Unverified 06/18/18 12:55 Travel Screening - Travel/Exposure Within Last 30 Days Have you traveled within the last 30 days?: No Review of Systems Reviewed: No additional complaints except as noted below Constitutional: Reports: As per HPI. Denies: Chills, Fever, Malaise, Night sweats, Weakness, Weight change Eyes: Reports: As per HPI. Denies: Eye discharge, Eye pain, Photophobia, Vision change ENT: Reports: As per HPI. Denies: Congestion, Dental pain, Ear pain, Epistaxis , Hearing loss, Throat pain Respiratory: Reports: As per HPI, Dyspnea. Denies: Cough, Hemoptysis, Stridor, Wheezes Cardiovascular: Reports: As per HPI. Denies: Arrhythmia, Chest pain, Dyspnea on exertion, Edema, Murmurs, Orthopnea, Palpitations, Paroxysmal nocturnal dyspnea, Rheumatic Fever, Syncope Endocrine: Reports: As per HPI. Denies: Fatigue, Heat or cold intolerance, Polydipsia, Polyuria Gastrointestinal: Reports: As per HPI. Denies: Abdominal pain, Constipation, Diarrhea, Hematemesis, Hematochezia, Melena, Nausea, Vomiting Genitourinary: Reports: As per HPI. Denies: Abnormal menses, Discharge, Dyspareunia, Dysuria, Frequency, Hematuria, Incontinence, Retention, Urgency Musculoskeletal: Reports: As per HPI. Denies: Arthralgia, Back pain, Gout, Joint swelling, Myalgia, Neck pain Skin: Reports: As per HPI. Denies: Bruising, Change in color, Change in hair/ nails, Lesions, Pruritus, Rash Neurological: Reports: As per HPI. Denies: Abnormal gait, Confusion, Headache, Numbness, Paresthesias, Seizure, Tingling, Tremors, Vertigo, Weakness Psychiatric: Reports: As per HPI. Denies: Anxiety, Auditory hallucinations, Depression, Homicidal thoughts, Suicidal thoughts, Visual hallucinations Hematological/Lymphatic: Reports: As per HPI. Denies: Anemia, Blood Clots, Easy bleeding, Easy bruising, Swollen glands Past Medical History - SOCIAL HISTORY Smoking Status: Former smoker Alcohol Use: None Drug Use: None - RESPIRATORY Hx Respiratory Disorders: No - CARDIOVASCULAR Hx Cardio Disorders: Yes Hx Edema: Yes - NEURO Hx Neuro Disorders: Yes Hx CVA: Yes (07/12/2016) - GI Hx GI Disorders: Yes Hx Liver Disease: Yes (on transplant list) - Hx Genitourinary Disorders: Yes Hx Kidney Stones: Yes - ENDOCRINE Hx Endocrine Disorders: Yes Hx Thyroid Disease: Yes - MUSCULOSKELETAL Hx Musculoskeletal Disorders: Yes - PSYCH Hx Psych Problems: Yes Hx Anxiety: Yes Hx Depression: Yes - HEMATOLOGY/ONCOLOGY Hx Hematology/Oncology Disorders: No Family Medical History Any Significant Family History?: Yes Hx Cancer: Brother/Sister Hx Heart Disease: Mother Physical Exam - General General Appearance: Alert, Oriented x3, Cooperative, No acute distress - Head Head exam: Normal inspection - Eye Eye exam: Normal appearance, PERRL Pupils: Normal accommodation - ENT ENT exam: Normal exam, Mucous membranes moist, Normal external ear exam, Normal orophraynx, TM's normal bilaterally Ear exam: Normal external inspection. negative: External canal tenderness Nasal Exam: Normal inspection. negative: Discharge, Sinus tenderness Mouth exam: Normal external inspection, Tongue normal Teeth exam: Normal inspection. negative: Dental caries Throat exam: Normal inspection. negative: Tonsillar erythema, Tonsillar exudate - Neck Neck exam: Normal inspection, Full ROM. negative: Tenderness - Respiratory Respiratory exam: Decreased breath sounds (on the right side). negative: Respiratory distress - Cardiovascular Cardiovascular Exam: Regular rate, Normal rhythm, Normal heart sounds - GI/Abdominal GI/Abdominal exam: Soft, Normal bowel sounds. negative: Tenderness - Rectal Rectal exam: Deferred - exam: Deferred - Extremities Extremities exam: Normal inspection, Full ROM, Normal capillary refill. negative: Tenderness - Back Back exam: Reports: Normal inspection, Full ROM. Denies: Muscle spasm, Rash noted, Tenderness - Neurological Neurological exam: Alert, Normal gait, Oriented X3, Reflexes normal - Psychiatric Psychiatric exam: Normal affect, Normal mood - Skin Skin exam: Dry, Intact, Normal color, Warm Course Vital Signs 07/28/18 07/28/18 14:41 14:45 Temperature 98.8 F Pulse Rate 104 H 104 H Respiratory 48 H 24 Rate Blood Pressure 126/77 Pulse Ox 88 L 94 L - Reevaluation(s) Reevaluation #1: discussed case with Dr Florian and will transfer to [facility] , 07/28/18 16:22 Medical Decision Making - Data Complexity MDM Data: X-Ray Ordered and/or Reviewed (large pleural effussion right side) - Lab Data Result diagrams: 07/28/18 14:53 07/28/18 14:53 Lab Results 07/28/18 07/28/18 07/28/18 Range/Units 14:53 14:53 14:53 WBC 7.7 (4.2-12.2) K/uL RBC 2.01 L (3.80-5.40) M/uL Hgb 7.1 L (11.6-16.0) gm/dl Hct 23.9 L (35.0-47.0) % MCV 118.9 H (81-97) fl MCH 35.3 H (27-33) pg MCHC 29.7 L (32-36) g/dl RDW 16.0 H (11.5-14.5) % Plt Count 215 (130-400) K/uL MPV 8.8 (7.4-10.4) fl Eosinophils % Not Reportable Basophils % Not Reportable PT 13.2 H (9.5-12.1) SECONDS INR 1.3 APTT 32.9 (24.5-39.1) SECONDS Sodium 143 (136-145) mmol/L Potassium 3.1 L (3.4-4.5) mmol/L Chloride 106 (98-107) mmol/L Carbon Dioxide 20.0 L (22-29) mmol/L Anion Gap 17.0 H (7-16) BUN 5 L (6-20) mg/dL Creatinine 0.6 (0.5-0.9) mg/dL Estimated GFR > 60 mL/min Random Glucose 109 (74-109) mg/dL Calcium 9.4 (8.6-10.0) mg/dL Total Bilirubin 8.10 H (0.2-1.0) mg/dL Direct Bilirubin 2.0 H (0-0.3) mg/dL AST 41 H (10.0-35.0) U/L ALT 17 (<33) U/L Alkaline Phosphatase 133 H (45-87) U/L Total Protein 7.4 (6.6-8.7) g/dL Albumin 3.8 L (4.0-5.0) g/dL Lipase 36 (13-60) U/L Disposition Clinical Impression: Chronic anemia, Pleural effusion Dyspnea Qualifiers: Dyspnea type: shortness of breath Qualified Code(s): R06.02 - Shortness of breath Liver failure Qualifiers: Liver failure chronicity: acute Hepatic coma status: without hepatic coma Qualified Code(s): K72.00 - Acute and subacute hepatic failure without coma Edema Qualifiers: Edema type: generalized Qualified Code(s): R60.1 - Generalized edema Disposition: Acute Care Hospital Transfer Condition: (3) Guarded Forms: Patient Portal Access Time of Disposition: 16:23 Quality - Quality Measures Quality Measures: N/A - Blood Pressure Screening Does Patient Have Any of the Following: No Blood Pressure Classification: Pre-Hypertensive BP Reading Systolic Measurement: 126 Diastolic Measurement: 77 Screening for High Blood Pressure: < Pre-Hypertensive BP, F/U Documented > [ G8950] Pre-Hypertensive Follow-up Interventions: Referral to alternative/primary care provider.
[2018-07-28 15:38] LABS: URINE APPEARANCE CLEAR; URINE BILIRUBIN NEGATIVE (NEGATIVE); URINE BLOOD MODERATE (NEGATIVE); URINE COLOR YELLOW; URINE GLUCOSE (UA) NEGATIVE (NEGATIVE); URINE KETONE NEGATIVE (NEGATIVE); URINE LEUKOCYTE ESTERASE NEGATIVE (NEGATIVE); URINE NITRITE NEGATIVE (NEGATIVE); URINE PROTEIN NEGATIVE (NEGATIVE); URINE UROBILINOGEN 0.2 E.U./dL (0.20 - 1.00)
[2018-07-28 15:50] LABS: URINE WBC 0 - 2 (0-2/hpf)
[2018-07-28] MEDS ORDERED: POTASSIUM CHLORIDE 20 MEQ TABLET PO ONE (16:29)
[2018-07-28] MEDS ORDERED: KETOROLAC 30 MG/ML VIAL IVP ONE (16:45)
--- NOTE | 2018-07-30 08:56 | RADIOLOGY REPORT ---
EXAM: CHEST, SINGLE VIEW HISTORY: COUGH AND SHORTNESS OF BREATH. HISTORY OF LIVER FAILURE. TECHNIQUE: A single frontal view of the chest was obtained. Comparison: Two view chest radiograph 08/04/16. FINDINGS: The visualized portion of the cardiac silhouette is similar from prior; the right heart border is obscured by right sided opacity. Large right sided pleural effusion, new from 2017 radiograph comparison. No focal abnormalities of the left lung. No visible pneumothorax. IMPRESSION: LARGE RIGHT SIDED PLEURAL EFFUSION, NEW FROM 2017 RADIOGRAPH COMPARISON. JOB NUMBER: [id number] [facility]
== END 2018-07-28 17:43 | disposition short-term general hospital (02) ==
LOC: ER 14:37
DX: J90 Pleural effusion, not elsewhere classified (principal); K72.00 Acute and subacute hepatic failure without coma; R06.02 Shortness of breath; D64.9 Anemia, unspecified; R60.1 Generalized edema; R41.0 Disorientation, unspecified; Z87.891 Personal history of nicotine dependence; Z86.73 Personal history of transient ischemic attack (TIA), and cerebral infarction without residual deficits
CPT/HCPCS: 71045; 80048; 80076; 81001; 82140; 83690; 85027; 85610; 85730; 93005; 93010; 96374; 96375; 99285; J1885; J1940; J7613

== ENCOUNTER 2018-10-02 13:35 | Emergency (ER) | payer MEDICAID ==
--- NOTE | 2018-10-02 14:11 | Emergency Department Record ---
History of Present Illness - General Chief Complaint: General Stated Complaint: LOW HEMOGLOBIN Time Seen by Provider: 10/02/18 14:03 Mode of Arrival: Ambulatory - Related Data Allergies Allergy/AdvReac Type Severity Reaction Status Date / Time No Known Drug Allergies Allergy Unverified 06/18/18 12:55 Travel Screening - Travel/Exposure Within Last 30 Days Have you traveled within the last 30 days?: No Past Medical History - SOCIAL HISTORY Smoking Status: Former smoker - RESPIRATORY Hx Respiratory Disorders: No - CARDIOVASCULAR Hx Cardio Disorders: Yes Hx Edema: Yes - NEURO Hx Neuro Disorders: Yes Hx CVA: Yes (07/12/2016) - GI Hx GI Disorders: Yes Hx Liver Disease: Yes (on transplant list) - Hx Genitourinary Disorders: Yes Hx Kidney Stones: Yes - ENDOCRINE Hx Endocrine Disorders: Yes Hx Thyroid Disease: Yes - MUSCULOSKELETAL Hx Musculoskeletal Disorders: Yes - PSYCH Hx Psych Problems: Yes Hx Anxiety: Yes Hx Depression: Yes - HEMATOLOGY/ONCOLOGY Hx Hematology/Oncology Disorders: No Family Medical History Any Significant Family History?: Yes Hx Cancer: Brother/Sister Hx Heart Disease: Mother Course Vital Signs 10/02/18 13:41 Temperature 98.6 F Pulse Rate 111 H Respiratory 22 Rate Blood Pressure 107/61 Pulse Ox 100 Medical Decision Making - Lab Data Result diagrams: 10/02/18 14:45 10/02/18 14:45 Disposition Clinical Impression: Anemia, Liver failure, Acute hematogenous osteomyelitis of both feet Disposition: Acute Care Hospital Transfer Condition: (1) Good Forms: Patient Portal Access Quality - Quality Measures Quality Measures: N/A - Blood Pressure Screening Does Patient Have Any of the Following: No Blood Pressure Classification: Normal BP Reading Systolic Measurement: 107 Diastolic Measurement: 61 Screening for High Blood Pressure: < Normal BP, F/U Not Required > [G8783]
--- NOTE | 2018-10-02 14:19 | Emergency Department Record ---
History of Present Illness - General Chief Complaint: General Stated Complaint: LOW HEMOGLOBIN Time Seen by Provider: 10/02/18 14:03 Source: Patient, RN notes reviewed Mode of Arrival: Ambulatory - History of Present Illness Initial comments: patient is feeling tired and she got her hemoglobin checked yesterday and it is 6.8 and she was told to go to the ED but she was to tired to drive to [place] because of her medical problems so she came to [facility]. PMH liver failure and on the transplant list in [place], biltateral osteomylitis and on cephapem and another antibiotic(doxycline) and her pic line pulled accidentally couple weeks ago. Patient says her feet are getting worse. - Related Data Allergies Allergy/AdvReac Type Severity Reaction Status Date / Time No Known Drug Allergies Allergy Unverified 06/18/18 12:55 Travel Screening - Travel/Exposure Within Last 30 Days Have you traveled within the last 30 days?: No Review of Systems Reviewed: No additional complaints except as noted below Constitutional: Reports: As per HPI, Weakness. Denies: Chills, Fever, Malaise, Night sweats, Weight change Eyes: Reports: As per HPI. Denies: Eye discharge, Eye pain, Photophobia, Vision change ENT: Reports: As per HPI. Denies: Congestion, Dental pain, Ear pain, Epistaxis , Hearing loss, Throat pain Respiratory: Reports: As per HPI. Denies: Cough, Dyspnea, Hemoptysis, Stridor, Wheezes Cardiovascular: Reports: As per HPI. Denies: Arrhythmia, Chest pain, Dyspnea on exertion, Edema, Murmurs, Orthopnea, Palpitations, Paroxysmal nocturnal dyspnea, Rheumatic Fever, Syncope Endocrine: Reports: As per HPI, Fatigue. Denies: Heat or cold intolerance, Polydipsia, Polyuria Gastrointestinal: Reports: As per HPI. Denies: Abdominal pain, Constipation, Diarrhea, Hematemesis, Hematochezia, Melena, Nausea, Vomiting Genitourinary: Reports: As per HPI. Denies: Abnormal menses, Discharge, Dyspareunia, Dysuria, Frequency, Hematuria, Incontinence, Retention, Urgency Musculoskeletal: Reports: As per HPI. Denies: Arthralgia, Back pain, Gout, Joint swelling, Myalgia, Neck pain Skin: Reports: As per HPI, Other (bilateral feet infections with drainage and sounds like osteomylitis sees infectious disease at [facility]). Denies: Bruising, Change in color, Change in hair/nails, Lesions, Pruritus, Rash Neurological: Reports: As per HPI. Denies: Abnormal gait, Confusion, Headache, Numbness, Paresthesias, Seizure, Tingling, Tremors, Vertigo, Weakness Psychiatric: Reports: As per HPI. Denies: Anxiety, Auditory hallucinations, Depression, Homicidal thoughts, Suicidal thoughts, Visual hallucinations Hematological/Lymphatic: Reports: As per HPI. Denies: Anemia, Blood Clots, Easy bleeding, Easy bruising, Swollen glands Past Medical History - SOCIAL HISTORY Smoking Status: Former smoker - RESPIRATORY Hx Respiratory Disorders: No - CARDIOVASCULAR Hx Cardio Disorders: Yes Hx Edema: Yes - NEURO Hx Neuro Disorders: Yes Hx CVA: Yes (07/12/2016) - GI Hx GI Disorders: Yes Hx Liver Disease: Yes (on transplant list) - Hx Genitourinary Disorders: Yes Hx Kidney Stones: Yes - ENDOCRINE Hx Endocrine Disorders: Yes Hx Thyroid Disease: Yes - MUSCULOSKELETAL Hx Musculoskeletal Disorders: Yes - PSYCH Hx Psych Problems: Yes Hx Anxiety: Yes Hx Depression: Yes - HEMATOLOGY/ONCOLOGY Hx Hematology/Oncology Disorders: No Family Medical History Any Significant Family History?: Yes Hx Cancer: Brother/Sister Hx Heart Disease: Mother Physical Exam - General General Appearance: Alert, Oriented x3, Cooperative, No acute distress - Head Head exam: Normal inspection - Eye Eye exam: Normal appearance, PERRL Pupils: Normal accommodation - ENT ENT exam: Normal exam, Mucous membranes moist, Normal external ear exam, Normal orophraynx, TM's normal bilaterally Ear exam: Normal external inspection. negative: External canal tenderness Nasal Exam: Normal inspection. negative: Discharge, Sinus tenderness Mouth exam: Normal external inspection, Tongue normal Teeth exam: Normal inspection. negative: Dental caries Throat exam: Normal inspection. negative: Tonsillar erythema, Tonsillar exudate - Neck Neck exam: Normal inspection, Full ROM. negative: Tenderness - Respiratory Respiratory exam: Normal lung sounds bilaterally. negative: Respiratory distress - Cardiovascular Cardiovascular Exam: Regular rate, Normal rhythm, Normal heart sounds - GI/Abdominal GI/Abdominal exam: Soft, Normal bowel sounds, Other (scab around umbilical and she tells me it is psoriasis). negative: Tenderness - Rectal Rectal exam: Deferred - exam: Deferred - Extremities Extremities exam: Normal inspection, Full ROM, Normal capillary refill. negative: Tenderness - Back Back exam: Reports: Normal inspection, Full ROM. Denies: Muscle spasm, Rash noted, Tenderness - Neurological Neurological exam: Alert, Normal gait, Oriented X3, Reflexes normal - Psychiatric Psychiatric exam: Normal affect, Normal mood - Skin Skin exam: Other (patient has bilateral redness of feet and drainage of purulent material) Course Vital Signs 10/02/18 13:41 Temperature 98.6 F Pulse Rate 111 H Respiratory 22 Rate Blood Pressure 107/61 Pulse Ox 100 - Reevaluation(s) Reevaluation #1: patient requesting pain medication and she says she uses norco 7.5 mg. I will give her morphine 2 mg IV 10/02/18 14:51 10/02/18 16:[address] Watkins and he accepted patient to [facility] Medical Decision Making - Lab Data Result diagrams: 10/02/18 14:45 10/02/18 14:45 Disposition Clinical Impression: Acute hematogenous osteomyelitis of both feet Anemia Qualifiers: Anemia type: unspecified type Qualified Code(s): D64.9 - Anemia, unspecified Liver failure Qualifiers: Liver failure chronicity: chronic Hepatic coma status: without hepatic coma Qualified Code(s): K72.10 - Chronic hepatic failure without coma Disposition: Acute Care Hospital Transfer Condition: (1) Good Forms: Patient Portal Access Time of Disposition: 16:44 Quality - Quality Measures Quality Measures: N/A - Blood Pressure Screening Does Patient Have Any of the Following: No Blood Pressure Classification: Normal BP Reading Systolic Measurement: 107 Diastolic Measurement: 61 Screening for High Blood Pressure: < Normal BP, F/U Not Required > [G8783]
[2018-10-02] MEDS ORDERED: MORPHINE SULFATE 10 MG/ML VIAL IVP ONE ×2 (14:50→18:34)
[2018-10-02 14:51] LABS: HEMATOCRIT 22.6 % (35.0-47.0); HEMOGLOBIN 7.1 gm/dl (11.6-16.0); MEAN CELL VOLUME 116.5 fl (81-97); MEAN CORPUSCULAR HGB CONC 31.4 g/dl (32-36); MEAN PLATELET VOLUME 10.7 fl (7.4-10.4); PLATELET COUNT 133 K/uL (130-400); RED BLOOD COUNT 1.94 M/uL (3.80-5.40); RED CELL DISTRIBUTION WIDTH 19.6 % (11.5-14.5); WHITE BLOOD COUNT W/O DIFF 9.4 K/uL (4.2-12.2)
[2018-10-02 14:53] LABS: MEAN CORPUSCULAR HEMOGLOBIN 36.5 pg (27-33)
[2018-10-02 15:03] LABS: ANISOCYTOSIS 2+; HYPOCHROMIA 2+; PLATELET ESTIMATE NORMAL (NORMAL); POIKILOCYTOSIS 2+
[2018-10-02 15:05] LABS: BLOOD UREA NITROGEN 19 mg/dL (6-20); INR 1.5; PARTIAL THROMBOPLASTIN TIME 34.6 SECONDS (24.5-39.1); PROTHROMBIN TIME (PATIENT) 15.3 SECONDS (9.5-12.1)
[2018-10-02 15:06] LABS: CREATININE 0.4 mg/dL (0.5-0.9); EST GLOMERULAR FILTRATION RATE > 60 mL/min; LIPASE 44 U/L (13-60); TOTAL PROTEIN 7.1 g/dL (6.6-8.7)
[2018-10-02 15:08] LABS: GLUCOSE,RANDOM 137 mg/dL (74-109)
[2018-10-02 15:11] LABS: ALB/GLOB RATIO 1.2 (1.1-1.8); ALBUMIN 3.8 g/dL (4.0-5.0); ALKALINE PHOSPHATASE 116 U/L (35-104); ALT/SGPT 36 U/L (<33); AST/SGOT 47 U/L (10.0-35.0)
--- NOTE | 2018-10-04 19:53 | RADIOLOGY REPORT ---
EXAM: CHEST 2 VIEWS HISTORY: ANEMIA, LIVER FAILURE. TECHNIQUE: Chest x-ray, two views. COMPARISON: 07/28/2018. FINDINGS: A focal area of opacity is present at the right lung base, likely a combination of atelectasis, infiltrate, and pleural fluid. This has decreased since the previous study. The heart is not enlarged. No mediastinal mass. Lungs otherwise appear clear. IMPRESSION: OPACITY AT THE RIGHT LUNG BASE, LIKELY A COMBINATION OF ATELECTASIS, INFILTRATE , AND SMALL RIGHT PLEURAL EFFUSION. THIS IS IMPROVED FROM THE PREVIOUS STUDY. NO NEW ABNORMALITY. JOB NUMBER: [id number] [facility]
== END 2018-10-02 19:00 | disposition short-term general hospital (02) ==
LOC: ER 13:35
DX: D64.9 Anemia, unspecified (principal); K72.10 Chronic hepatic failure without coma; M86.072 Acute hematogenous osteomyelitis, left ankle and foot; M86.071 Acute hematogenous osteomyelitis, right ankle and foot; Z87.891 Personal history of nicotine dependence
CPT/HCPCS: 99285 ×2; 96376; 96374; 83690; 82140; 85730; 85610; 80053; 85027; 71046; J2270

== ENCOUNTER 2019-08-22 13:30 | Emergency (ER) | payer MEDICAID ==
[2019-08-22] MEDS ORDERED: HYDROMORPHONE HCL 2 MG/ML VIAL IVP ONE ×2 (14:23→15:55)
--- NOTE | 2019-08-22 14:32 | Emergency Department Record ---
History of Present Illness - General Chief Complaint: Cough Stated Complaint: COUGH,RT SIDE PAIN Time Seen by Provider: 08/22/19 13:49 Source: Patient Mode of Arrival: Wheelchair Limitations: No limitations - History of Present Illness Initial Comments: pt is c/o ruq ap. she had a liver transplant last april because of MATTS[place]. she had a hospitalization since for rejection. she has had a cough and sob and congestion. now she has ruq ap that she is unsure if the etiology is from coughing so hard or if there is a problem with her liver MD Complaint: Abdominal pain Onset/Timin -: Days(s) Location: RUQ Severity: Moderate Severity scale (1-10): 8 Quality: Aching Consistency: Constant Improves With: Nothing Worsens With: Movement Context: Sick contacts - Related Data Patient : No Previous Rx's Medication Instructions Recorded Hydromorphone HCl [Dilaudid] 2 mg PO Q4H #5 tab 08/22/19 Allergies Allergy/AdvReac Type Severity Reaction Status Date / Time No Known Drug Allergies Allergy Verified 08/22/19 13:53 Travel/Exposure Screening - Travel/Exposure Within Last 30 Days Have you traveled within the last 30 days?: No - Travel/Exposure Within Last Year Have you traveled outside the [place] in the last year?: No - Additonal Travel/Exposure Details Have you been exposed to anyone with a communicable illness?: No - Travel Symptoms Symptom Screening: None Review of Systems Reviewed: No additional complaints except as noted below Constitutional: Reports: As per HPI. Denies: Chills, Fever, Malaise, Night sweats, Weakness, Weight change Eyes: Reports: As per HPI. Denies: Eye discharge, Eye pain, Photophobia, Vision change ENT: Reports: As per HPI, Congestion. Denies: Dental pain, Ear pain, Epistaxis, Hearing loss, Throat pain Respiratory: Reports: As per HPI, Cough. Denies: Dyspnea, Hemoptysis, Stridor, Wheezes Cardiovascular: Reports: As per HPI. Denies: Arrhythmia, Chest pain, Dyspnea on exertion, Edema, Murmurs, Orthopnea, Palpitations, Paroxysmal nocturnal dyspnea, Rheumatic Fever, Syncope Endocrine: Reports: As per HPI. Denies: Fatigue, Heat or cold intolerance, Polydipsia, Polyuria Gastrointestinal: Reports: As per HPI. Denies: Abdominal pain, Constipation, Diarrhea, Hematemesis, Hematochezia, Melena, Nausea, Vomiting Genitourinary: Reports: As per HPI. Denies: Abnormal menses, Discharge, Dyspareunia, Dysuria, Frequency, Hematuria, Incontinence, Retention, Urgency Musculoskeletal: Reports: As per HPI. Denies: Arthralgia, Back pain, Gout, Joint swelling, Myalgia, Neck pain Skin: Reports: As per HPI, Bruising, Rash. Denies: Change in color, Change in hair/nails, Lesions, Pruritus Neurological: Reports: As per HPI. Denies: Abnormal gait, Confusion, Headache, Numbness, Paresthesias, Seizure, Tingling, Tremors, Vertigo, Weakness Psychiatric: Reports: As per HPI. Denies: Anxiety, Auditory hallucinations, Depression, Homicidal thoughts, Suicidal thoughts, Visual hallucinations Hematological/Lymphatic: Reports: As per HPI. Denies: Anemia, Blood Clots, Easy bleeding, Easy bruising, Swollen glands Past Medical History - SOCIAL HISTORY Smoking Status: Former smoker Alcohol Use: None Drug Use: None - RESPIRATORY Hx Respiratory Disorders: No Comment:: monthly bariatric lung treatments to stop chance of pneumonia - CARDIOVASCULAR Hx Cardio Disorders: Yes Hx CHF: Yes Hx Edema: Yes - NEURO Hx Neuro Disorders: Yes Hx CVA: Yes (07/12/2016) Comment:: no dfficits to speak - GI Hx GI Disorders: Yes Hx Liver Disease: Yes Comment:: received Hep C liver with transplant. - Hx Genitourinary Disorders: Yes Hx Kidney Stones: Yes - ENDOCRINE Hx Endocrine Disorders: Yes Hx Diabetes: Yes (maybe) Hx Thyroid Disease: Yes - MUSCULOSKELETAL Hx Musculoskeletal Disorders: Yes - PSYCH Hx Psych Problems: Yes Hx Anxiety: Yes Hx Depression: Yes - HEMATOLOGY/ONCOLOGY Hx Hematology/Oncology Disorders: No Family Medical History Any Significant Family History?: Yes Hx Cancer: Brother/Sister Hx Heart Disease: Mother Physical Exam - General General Appearance: Alert, Oriented x3, Cooperative, Mild distress - Head Head exam: Normal inspection - Eye Eye exam: Normal appearance, PERRL, EOMI Pupils: Normal accommodation - ENT ENT exam: Normal exam, Mucous membranes moist, Normal external ear exam, Normal orophraynx Ear exam: Normal external inspection. negative: External canal tenderness Nasal Exam: Normal inspection. negative: Discharge, Sinus tenderness Mouth exam: Normal external inspection, Tongue normal Teeth exam: Normal inspection. negative: Dental caries Throat exam: Normal inspection. negative: Tonsillar erythema, Tonsillar exudate - Neck Neck exam: Normal inspection, Full ROM. negative: Tenderness - Respiratory Respiratory exam: Normal lung sounds bilaterally. negative: Respiratory dist ress - Cardiovascular Cardiovascular Exam: Normal rhythm, Normal heart sounds, Tachycardia - GI/Abdominal GI/Abdominal exam: Soft, Normal bowel sounds, Tenderness (ruq) - Rectal Rectal exam: Deferred - exam: Deferred - Extremities Extremities exam: Normal inspection, Full ROM, Normal capillary refill. negative: Tenderness - Back Back exam: Reports: Normal inspection, Full ROM. Denies: Muscle spasm, Rash noted, Tenderness - Neurological Neurological exam: Alert, CN II-XII intact, Normal gait, Oriented X3 - Psychiatric Psychiatric exam: Normal affect, Normal mood - Skin Skin exam: Dry, Intact, Normal color, Warm Course Vital Signs 08/22/19 13:44 Temperature 97.5 F L Pulse Rate 101 H Respiratory 32 H Rate Blood Pressure 112/76 Pulse Ox 95 - Reevaluation(s) Reevaluation #1: 08/22/19 18:12 pt is doing better. pt was d/w [facility] transplant physician who said pt could be sent home on oral abx. Medical Decision Making - Lab Data Result diagrams: 08/22/19 14:00 08/22/19 14:00 Disposition Disposition: Discharge Clinical Impression: Pneumonia Qualifiers: Pneumonia type: due to unspecified organism Laterality: bilateral Lung location: lower lobe of lung Qualified Code(s): J18.9 - Pneumonia, unspecified organism Disposition: Home, Self-Care Condition: (1) Good Instructions: Bacterial Pneumonia (ED) Additional Instructions: follow up with family doctor in next 2 days. return sooner if worse. Prescriptions: Hydromorphone HCl [Dilaudid] 2 mg PO Q4H #5 tab Forms: Patient Portal Access Quality - Quality Measures Quality Measures: N/A - Blood Pressure Screening Does Patient Have Any of the Following: No Blood Pressure Classification: Normal BP Reading Systolic Measurement: 112 Diastolic Measurement: 76 Screening for High Blood Pressure: < Normal BP, F/U Not Required > [G8783]
[2019-08-22 14:57] LABS: ABSOLUTE NEUTROPHIL COUNT 10.87; HEMATOCRIT 37.9 % (35.0-47.0); HEMOGLOBIN 12.7 gm/dl (11.6-16.0); MEAN CELL VOLUME 89.6 fl (81-97); MEAN CORPUSCULAR HGB CONC 33.5 g/dl (32-36); PLATELET COUNT 232 K/uL (130-400); RED BLOOD COUNT 4.23 M/uL (3.80-5.40); RED CELL DISTRIBUTION WIDTH 14.1 % (11.5-14.5); WHITE BLOOD COUNT W/O DIFF 13.1 K/uL (4.2-12.2)
[2019-08-22 14:58] LABS: BILIRUBIN,TOTAL 0.5 mg/dL (0.2-1.0); CREATININE 1.1 mg/dL (0.5-0.9); TOTAL PROTEIN 6.3 g/dL (6.6-8.7)
[2019-08-22 15:01] LABS: INFLUENZA A NEGATIVE (NEGATIVE); INFLUENZA B NEGATIVE (NEGATIVE)
[2019-08-22 15:03] LABS: ALB/GLOB RATIO 1.3 (1.1-1.8); ALBUMIN 3.6 g/dL (4.0-5.0)
[2019-08-22 15:11] LABS: LACTIC ACID 2.4 mmol/L (0.5-2.2)
[2019-08-22 15:15] LABS: ANISOCYTOSIS 2+; MICROCYTOSIS 1+; PLATELET ESTIMATE NORMAL (NORMAL)
[2019-08-22] MEDS ORDERED: POTASSIUM CHLORIDE 20 MEQ TABLET PO ONE (15:16)
--- NOTE | 2019-08-22 15:32 | RADIOLOGY REPORT ---
EXAMINATION: Two View Chest Radiographs EXAM DATE: 08/22/2019 3:24 PM TECHNIQUE: Frontal and lateral views INDICATION: cough COMPARISON: September 2018 chest x-ray ENCOUNTER: Not applicable FINDINGS: PA and lateral views the chest show subtle interstitial opacity within the retrocardiac left lung and the right midlung, suspicious for pneumonia. There is no pleural effusion or pneumothorax. Cardiac s ilhouette and pulmonary vascularity appear normal. CBD stent is noted. IMPRESSION: Possible subtle bilateral pneumonia. Dictated by: Ross Swanson MD on 08/22/2019 3:29 PM. .
--- NOTE | 2019-08-22 15:42 | CT SCAN REPORT ---
EXAMINATION: CT Abdomen and Pelvis without IV Contrast EXAM DATE: 08/22/2019 3:23 PM TECHNIQUE: Standard protocol CT imaging of the abdomen and pelvis was performed without intravenous c ontrast. INDICATION: RUQ pain COMPARISON: 05/12/2018 ENCOUNTER: Not applicable CT ABDOMEN AND PELVIS FINDINGS: Lung Bases: There is mild tree-in-bud opacification in the right lower lobe. There is focal alveolar infiltrate posteriorly at the left base and again in the right middle lobe. Hepatobiliary: The liver has a normal size with a smooth surface. Gallbladder surgically absent. The re is a plastic biliary stent present in the common duct, in good position. No definite biliary diste ntion is seen Pancreas: The pancreas is normal. Spleen: Moderate splenomegaly persists Adrenals: The adrenal glands are normal. Kidneys, Ureters, & Bladder: There is a nonobstructing 4 x 8 mm calculus in the right lower pole Both ureters have a normal course and caliber and the urinary bladder a normal morphology and uniform wal l thickness. No ureteral or bladder calculi are identified. Gastrointestinal: The stomach and small bowel are normal with no obstruction or inflammation. The lar ge bowel is within normal limits. Reproductive Organs: Unremarkable Lymphatic System: There is no adenopathy within the abdomen or pelvis. Vasculature: Normal caliber abdominal aorta Peritoneum: No free fluid, free air, or inflammation Abdominal wall & Musculoskeletal: No suspicious bone lesions. Assessment of the solid organs, soft tissues, and vascular structures is overall limited on noncontra st imaging, IMPRESSION: Examination is limited by lack of intravenous contrast Bilateral pulmonary parenchymal infiltrates are seen Moderate splenomegaly persists An endobiliary stent is in good position without convincing evidence of biliary distention. Further i maging with contrast-enhanced CT would be useful for better evaluation of the pancreas and biliary tr ee. Simultaneously, evaluation of splenic and portal venous structures could be better achieved with contrast-enhanced imaging Dictated by: Ronny Peterson MD on 08/22/2019 3:28 PM. .
[2019-08-22 16:20] LABS: URINE APPEARANCE CLEAR; URINE BILIRUBIN NEGATIVE (NEGATIVE); URINE BLOOD MODERATE (NEGATIVE); URINE COLOR YELLOW; URINE GLUCOSE (UA) NEGATIVE (NEGATIVE); URINE KETONE NEGATIVE (NEGATIVE); URINE LEUKOCYTE ESTERASE NEGATIVE (NEGATIVE); URINE NITRITE NEGATIVE (NEGATIVE); URINE PROTEIN TRACE (NEGATIVE); URINE UROBILINOGEN 0.2 E.U./dL (0.20 - 1.00)
[2019-08-22 16:28] LABS: URINE WBC 0 - 2 (0-2/hpf)
[2019-08-22] MEDS ORDERED: AMPICILLIN SODIUM/SULBACTAM NA 3 G in 0.9 % SODIUM CHLORIDE 100ML 100 ML IVPB ONE (17:28)
--- NOTE | 2019-08-22 18:54 | Emergency Department Record ---
History of Present Illness - General Chief Complaint: Cough Stated Complaint: COUGH,RT SIDE PAIN Time Seen by Provider: 08/22/19 13:49 Source: Patient Mode of Arrival: Wheelchair Limitations: No limitations - History of Present Illness Onset/Timin -: Days(s) Severity: Moderate Severity scale (1-10): 8 Consistency: Constant - Related Data Previous Rx's Medication Instructions Recorded Amoxicillin/Potassium Clav 1 each PO BID #20 tablet 08/22/19 [Augmentin 875Mg/125Mg] Hydromorphone HCl [Dilaudid] 2 mg PO Q4H #5 tab 08/22/19 Allergies Allergy/AdvReac Type Severity Reaction Status Date / Time No Known Drug Allergies Allergy Verified 08/22/19 13:53 Travel/Exposure Screening - Travel/Exposure Within Last 30 Days Have you traveled within the last 30 days?: No - Travel/Exposure Within Last Year Have you traveled outside the [place] in the last year?: No - Additonal Travel/Exposure Details Have you been exposed to anyone with a communicable illness?: No - Travel Symptoms Symptom Screening: None Review of Systems Constitutional: Reports: As per HPI. Denies: Chills, Fever, Malaise, Night sweats, Weakness, Weight change Eyes: Reports: As per HPI. Denies: Eye discharge, Eye pain, Photophobia, Vision change ENT: Reports: As per HPI, Congestion. Denies: Dental pain, Ear pain, Epistaxis, Hearing loss, Throat pain Respiratory: Reports: As per HPI, Cough. Denies: Dyspnea, Hemoptysis, Stridor, Wheezes Cardiovascular: Reports: As per HPI. Denies: Arrhythmia, Chest pain, Dyspnea on exertion, Edema, Murmurs, Orthopnea, Palpitations, Paroxysmal nocturnal dyspnea, Rheumatic Fever, Syncope Endocrine: Reports: As per HPI. Denies: Fatigue, Heat or cold intolerance, Polydipsia, Polyuria Gastrointestinal: Reports: As per HPI. Denies: Abdominal pain, Constipation, Diarrhea, Hematemesis, Hematochezia, Melena, Nausea, Vomiting Genitourinary: Reports: As per HPI. Denies: Abnormal menses, Discharge, Dyspareunia, Dysuria, Frequency, Hematuria, Incontinence, Retention, Urgency Musculoskeletal: Reports: As per HPI. Denies: Arthralgia, Back pain, Gout, Joint swelling, Myalgia, Neck pain Skin: Reports: As per HPI, Bruising, Rash. Denies: Change in color, Change in hair/nails, Lesions, Pruritus Neurological: Reports: As per HPI. Denies: Abnormal gait, Confusion, Headache, Numbness, Paresthesias, Seizure, Tingling, Tremors, Vertigo, Weakness Psychiatric: Reports: As per HPI. Denies: Anxiety, Auditory hallucinations, Depression, Homicidal thoughts, Suicidal thoughts, Visual hallucinations Hematological/Lymphatic: Reports: As per HPI. Denies: Anemia, Blood Clots, Easy bleeding, Easy bruising, Swollen glands Past Medical History - SOCIAL HISTORY Smoking Status: Former smoker Alcohol Use: None Drug Use: None - RESPIRATORY Hx Respiratory Disorders: No Comment:: monthly bariatric lung treatments to stop chance of pneumonia - CARDIOVASCULAR Hx Cardio Disorders: Yes Hx CHF: Yes Hx Edema: Yes - NEURO Hx Neuro Disorders: Yes Hx CVA: Yes (07/12/2016) Comment:: no dfficits to speak - GI Hx GI Disorders: Yes Hx Liver Disease: Yes Comment:: received Hep C liver with transplant. - Hx Genitourinary Disorders: Yes Hx Kidney Stones: Yes - ENDOCRINE Hx Endocrine Disorders: Yes Hx Diabetes: Yes (maybe) Hx Thyroid Disease: Yes - MUSCULOSKELETAL Hx Musculoskeletal Disorders: Yes - PSYCH Hx Psych Problems: Yes Hx Anxiety: Yes Hx Depression: Yes - HEMATOLOGY/ONCOLOGY Hx Hematology/Oncology Disorders: No Family Medical History Any Significant Family History?: Yes Hx Cancer: Brother/Sister Hx Heart Disease: Mother Physical Exam - General Limitations: No limitations Course Vital Signs 08/22/19 08/22/19 13:44 16:18 Temperature 97.5 F L 98.0 F Pulse Rate 101 H Pulse Rate [ 87 Pulse Ox Probe] Respiratory 32 H 24 Rate Blood Pressure 112/76 Blood Pressure 95/60 [Right Arm] Pulse Ox 95 95 Medical Decision Making - Lab Data Result diagrams: 08/22/19 14:00 08/22/19 14:00 Lab Results 08/22/19 08/22/19 08/22/19 Range/Units 14:00 14:00 Unknown WBC 13.1 H (4.2-12.2) K/uL RBC 4.23 (3.80-5.40) M/uL Hgb 12.7 (11.6-16.0) gm/dl Hct 37.9 (35.0-47.0) % MCV 89.6 (81-97) fl MCH 30.0 (27-33) pg MCHC 33.5 (32-36) g/dl RDW 14.1 (11.5-14.5) % Plt Count 232 (130-400) K/uL MPV 10.0 (7.4-10.4) fl Neutrophils % 83.0 H (47-80) % Band Neutrophils % 2.0 (0-5) % Eosinophils % Not Reportable Basophils % Not Reportable Absolute Neutrophils 10.87 Lymphocytes 7.0 L (16-45) % Monocytes 8.0 (0-9) % Platelet Estimate Normal (NORMAL) Anisocytosis 2+ Microcytosis 1+ Macrocytosis 1+ Sodium 141 (136-145) mmol/L Potassium 2.9 L* (3.4-4.5) mmol/L Chloride 105 (98-107) mmol/L Carbon Dioxide 20.0 L (22-29) mmol/L Anion Gap 16.0 (7-16) BUN 36 H (6-20) mg/dL Creatinine 1.1 H (0.5-0.9) mg/dL Estimated GFR 58 mL/min Random Glucose 147 H (74-109) mg/dL Lactic Acid 2.4 H (0.5-2.2) mmol/L Calcium 9.6 (8.6-10.0) mg/dL Total Bilirubin 0.50 (0.2-1.0) mg/dL AST 14 (10.0-35.0) U/L ALT 26 (<33) U/L Alkaline Phosphatase 249 H (35-104) U/L Total Protein 6.3 L (6.6-8.7) g/dL Albumin 3.6 L (4.0-5.0) g/dL Globulin 2.7 (1.4-4.8) gm/dL Albumin/Globulin Ratio 1.3 (1.1-1.8) Urine Color Yellow Urine Appearance Clear Urine pH 6.0 (5.0-8.0) Ur Specific [place] 1.020 (1.002-1.030) Urine Protein Trace H (NEGATIVE) Urine Glucose (UA) Negative (NEGATIVE) Urine Ketones Negative (NEGATIVE) Urine Blood Moderate (NEGATIVE) Urine Nitrite Negative (NEGATIVE) Urine Bilirubin Negative (NEGATIVE) Urine Urobilinogen 0.2 (0.20 - 1.00) E.U./dL Ur Leukocyte Esterase Negative (NEGATIVE) Urine RBC 7 - 10 (NONE SEEN) Urine WBC 0 - 2 (0-2/hpf) Ur Epithelial Cells 10 - 15 (FEW) Influenza Type A Ag (NEGATIVE) Influenza Type B Ag (NEGATIVE) 08/22/19 Range/Units Unknown WBC (4.2-12.2) K/uL RBC (3.80-5.40) M/uL Hgb (11.6-16.0) gm/dl Hct (35.0-47.0) % MCV (81-97) fl MCH (27-33) pg MCHC (32-36) g/dl RDW (11.5-14.5) % Plt Count (130-400) K/uL MPV (7.4-10.4) fl Neutrophils % (47-80) % Band Neutrophils % (0-5) % Eosinophils % Basophils % Absolute Neutrophils Lymphocytes (16-45) % Monocytes (0-9) % Platelet Estimate (NORMAL) Anisocytosis Microcytosis Macrocytosis Sodium (136-145) mmol/L Potassium (3.4-4.5) mmol/L Chloride (98-107) mmol/L Carbon Dioxide (22-29) mmol/L Anion Gap (7-16) BUN (6-20) mg/dL Creatinine (0.5-0.9) mg/dL Estimated GFR mL/min Random Glucose (74-109) mg/dL Lactic Acid (0.5-2.2) mmol/L Calcium (8.6-10.0) mg/dL Total Bilirubin (0.2-1.0) mg/dL AST (10.0-35.0) U/L ALT (<33) U/L Alkaline Phosphatase (35-104) U/L Total Protein (6.6-8.7) g/dL Albumin (4.0-5.0) g/dL Globulin (1.4-4.8) gm/dL Albumin/Globulin Ratio (1.1-1.8) Urine Color Urine Appearance Urine pH (5.0-8.0) Ur Specific [place] (1.002-1.030) Urine Protein (NEGATIVE) Urine Glucose (UA) (NEGATIVE) Urine Ketones (NEGATIVE) Urine Blood (NEGATIVE) Urine Nitrite (NEGATIVE) Urine Bilirubin (NEGATIVE) Urine Urobilinogen (0.20 - 1.00) E.U./dL Ur Leukocyte Esterase (NEGATIVE) Urine RBC (NONE SEEN) Urine WBC (0-2/hpf) Ur Epithelial Cells (FEW) Influenza Type A Ag Negative (NEGATIVE) Influenza Type B Ag Negative (NEGATIVE) Disposition Disposition: Discharge Clinical Impression: Pneumonia Qualifiers: Pneumonia type: due to unspecified organism Laterality: bilateral Lung location: lower lobe of lung Qualified Code(s): J18.9 - Pneumonia, unspecified organism Disposition: Home, Self-Care Condition: (1) Good Instructions: Bacterial Pneumonia (ED) Additional Instructions: follow up with family doctor in next 2 days. return sooner if worse. Prescriptions: Amoxicillin/Potassium Clav [Augmentin 875Mg/125Mg] 1 each PO BID #20 tablet Hydromorphone HCl [Dilaudid] 2 mg PO Q4H #5 tab Forms: Patient Portal Access Quality - Quality Measures Quality Measures: N/A - Blood Pressure Screening Does Patient Have Any of the Following: No Blood Pressure Classification: Normal BP Reading Systolic Measurement: 112 Diastolic Measurement: 76 Screening for High Blood Pressure: < Normal BP, F/U Not Required > [G8783]
== END 2019-08-22 18:53 | disposition home or self-care (01) ==
LOC: ER 13:30
DX: J18.9 Pneumonia, unspecified organism (principal); R10.11 Right upper quadrant pain; J44.9 Chronic obstructive pulmonary disease, unspecified; Z94.4 Liver transplant status; Z87.891 Personal history of nicotine dependence
CPT/HCPCS: 71046; 74176; 80053; 81001; 83605; 85027; 87400; 93041; 96365; 96375; 99284; J0295